=== PATIENT | female | born 1965 | race Caucasian/White ===

== ENCOUNTER 2024-04-09 16:42 | Outpatient (OUT) | payer OTHER, SELFPAY ==
[2024-04-09 17:11] LABS: Bilirubin Urine NEGATIVE (NEGATIVE); Blood Urine SMALL (NEGATIVE); Clarity Urine CLEAR (CLEAR); Color Urine YELLOW (YELLOW); Glucose Urine UA NEGATIVE (NEGATIVE); Ketones Urine NEGATIVE (NEGATIVE); Leukocyte Esterase Urine NEGATIVE (NEGATIVE); Nitrite Urine NEGATIVE (NEGATIVE); Protein Urine TRACE mg/dL (NEG/TRACE); Specific Gravity Urine >=1.030 (1.005-1.025); Urobilinogen Urine 0.2 EU/dL (0.2-1.0); pH Urine 5.5 (5.0-9.0)
== END 2024-04-09 16:43 | disposition home or self-care (01) ==
PROVIDERS: PCP Family Medicine; Visit Provider Family Medicine
DX: R30.0 Dysuria (principal)
CPT/HCPCS: 81003; 87086

== ENCOUNTER 2024-07-21 11:36 | Outpatient (OUT) | payer OTHER, SELFPAY ==
--- NOTE | 2024-07-21 11:39 | US_ITS ---
The [address] [address] Patient Name: SANKET MACDONALD MRN: [id number] date: 1965 Sex: F Assigned Patient Location: [place] Current Patient Location: Accession/Order Number: [id number] Exam Date: 07/21/2024 12:20 Report Date: 07/21/2024 14:24 At the request of: LUCINDA VELOZ Procedure: US renal BI EXAM: US renal BI HISTORY: Urinary Tract Infection Symptoms COMPARISON: None. TECHNIQUE: Real-time ultrasound imaging of the kidneys and bladder Findings: The right and left kidneys measure 10.1 and 9.0 cm. There is good corticomedullary differentiation. No renal stones or collecting system dilatation. No focal mass or perinephric fluid collection. The bladder is fluid-filled and unremarkable with a prevoid volume of 393 mL. The bilateral ureteral jets are identified. US/US renal BI IMPRESSION: 1. Unremarkable sonographic appearance of the kidneys and bladder. Electronically authenticated by: ALEA AYON Date: 07/21/2024 14:24
--- OUTSIDE RECORDS SUMMARY | 2024-07-21 11:56 | XMS_ITS | CCD ---
Author Organization [facility] Care Team Providers Care Freight Agent Name Role Phone Praneeth Soto Attending Provider Fermin Noriega Primary Care Provider PIEDAD BROWN Attending Unavailable PIEDAD BROWN Admitting Unavailable PIEDAD BROWN Consulting Unavailable PIEDAD BROWN Attending Unavailable PIEDAD BROWN Admitting Unavailable PIEDAD BROWN Consulting Unavailable MD Fermin Noriega Primary Care Provider MD Griselda Faye Attending Provider DO Praneeth Soto Referring Provider MD Pastor Allison Solano Attending Provider MD Fermin Noriega Primary Care Provider [phone] DO Praneeth Soto Attending Provider [phone] MD Griselda Faye Attending Provider DO Praneeth Soto Referring Provider [phone] FERMIN NORIEGA Primary Care Physician Unavail able MD Fermin Noriega Primary Care Provider [phone] MD Griselda Faye Attending Provider DO Praneeth Soto Referring Provider MD Fermin Noriega Primary Care Provider DO Praneeth Soto Attending Provider [facility], Outreach Attending Provider [phone] Fermin Noriega MD Primary Care Provider MD Griselda Faye Attending Provider [phone] DO Praneeth Soto Referring Provider Hemeyer, MD Edward J Primary Care Provider MD Griselda Faye Attending Provider DO Praneeth Soto Referring Provider ARETHA Long Attending Provider Fermin Noriega Primary Care Unavailable Praneeth Soto Admitting Unavailable Praneeth Soto Attending Unavailable Fermin Noriega Primary Care Unavailable Cara Long Admitting Unavailable Cara Long Attending Unavailable Griselda Faye Attending Unavailable Fermin Noriega Primary Care Unavailable Griselda Faye Admitting Unavailable Praneeth Soto Referring Unavailable Fermin Noriega Primary Care Unavailable Community, Outreach Admitting Unavailable Community, Outreach Attending Unavailable PRANEETH SOTO Attending Unavailable FERMIN NORIEGA Referring Unavailable FERMIN NORIEGA Attending Unavailable AYANNA ROSARIO Attending Unavailable FERMIN NORIEGA Attending Unavailable PRANEETH SOTO Attending Unavailable FERMIN NORIEGA Attending Unavailable KELIN VELOZ Admitting Unavailab KELIN Mccall Attending Unavailab FERMIN Farooq Admitting Unavailable FERMIN NORIEGA Attending Unavailable Alma Bennett Attending Unavailable Alma Bennett Admitting Unavailable FERMIN NORIEGA Referring Unavailable KELIN VELOZ Attending Unavailab bharati Unavailable Unavailable Unavailable Medications Current Medications Medication Drug Class(es) Dates Sig (Normalized) Sig (Original) [id number] 200 actuat albuterol 0.09 mg/actuat metered dose inhaler (2 sources) beta2-Adrenergic Agonist Start: 01-31-2024 take 1 puff(s) by inhalation four times daily Albuterol Sulfate Active 2 PUFF INHALATION Four times daily 8.5 January 31, 2024 12:00am ascorbic acid 60 mg / beta carotene 5000 unt / copper sulfate 40 mg / dl-alpha tocopheryl acetate 30 unt / sodium selenite 0.04 mg / zinc oxide 40 mg oral tablet (3 sources) Vitamin C Multiple Vitamin (Multivitamin Adult) tablet as directed Orally 0 Active azithromycin 250 mg oral tablet (2 sources) Macrolide Antimicrobial Start: 01-31-2024 take 2 tablets by mouth once daily, then take 1 tablet by mouth once daily Azithromycin (Zithromax Z-Bryan) 250 mg tablet Active 250 MG PO Daily 6 January 31, 2024 12:00am take 2 tabs today and 1 daily for the next 4 days benzonatate 200 mg oral capsule (2 sources) Non-narcotic Antitussive Start: 01-31-2024 Benzonatate Active 200 MG PO 2-3 TIMES PER DAY January 31, 2024 12:00am Bupropion (2 sources) Aminoketone Start: 10-24-2020 buPROPion Start Date: 10/24/20 Status: Ordered 24 HR calcium carbonate 1500 MG / cholecalciferol 500 UNT Extended Release Oral Tablet (5 sources) Vitamin D Start: 07-13-2024 take 2 tablets by mouth once daily in the morning calcium-vitamin D 600 mg-500 intl units oral tablet, extended release 2 tab(s), Oral, qAM, 80 tab(s), Refill(s) 0 Start Date: 07/13/24 Status: Ordered calcium carbonat e-vitamin D 600-200 MG-UNIT tablet 1 (one) time each day at the same time. 0 Active cephalexin 500 mg oral capsule (2 sources) Cephalosporin Antibacterial Start: 03-27-2024 take 500 mg by mouth every twelve hours Cephalexin Active 500 MG PO Q12H 20 March 27, 2024 12:00am Citalopram (2 sources) Serotonin Reuptake Inhibitor Start: 10-24-2020 citalopram Start Date: 10/24/20 Status: Ordered dextromethorphan hydrobromide 1.5 mg/ml / pyrilamine maleate 1.5 mg/ml oral solution (2 sources) Uncompetitive S-vbrzzs-B-aspartate Receptor Antagonist, Sigma-1 Agonist Start: 03-27-2024 take 1 mL by mouth every eight hours Pyrilamine-Dext romethorphan ([place] Dm) 7.5-7.5 mg/5 mL liquid Active 10 ML PO Every 8 hours 150 March 27, 2024 12:00am Dosoquin (2 sources) Start: 10-24-2020 Dosoquin Refill(s) 0 Start Date: 10/24/20 Status: Ordered DULoxetine 20 mg delayed release oral capsule (15 sources) Serotonin and Norepinephrine Reuptake Inhibitor Start: 07-13-2024 duloxetine 20 mg oral delayed release capsule 20 mg = 1 cap(s), Refills(s) 0 Start Date: 07/13/24 Status: Ordered Start: 05-23-2023 take 1 capsule by fl ut in the morning DULoxetine (Cymbalta) [address] capsule Take 20 mg by mouth in the morning. 0 05/23/2023 Active Start: 12-04-2020 take 30 mg by mouth once daily Duloxetine Active 30 MG PO Daily December 04, 2020 1:00am ibuprofen 800 mg oral tablet (9 sources) Nonsteroidal Anti-inflammatory Drug Start: 02-03-2021 take 800 mg by mouth three times daily Ibuprofen Active 800 MG PO Three times daily February 03, 2021 12:00am letrozole 2.5 mg oral tablet (20 sources) Aromatase Inhibitor Start: 07-13-2024 letrozole 2.5 mg Tab 2.5 mg = 1 tab(s), Refills(s) 0 Start Date: 07/13/24 Status: Ordered Start: 03-07-2021 End: 10-20-2023 take 2.5 mg by mouth once daily Letrozole Discontinued 2.5 MG PO Daily 90 90 August 12, 2022 3:27pm October 20, 2023 9:45am methylPREDNISolone 4 mg oral tablet (2 sources) Corticosteroid Start: 01-31-2024 take 1 tablet by mouth once Methylprednisolone (Medrol (Bryan)) 4 mg tablets,dose pack Active 0 PO per package directions January 31, 2024 12:00am PO PER PKG DIR for 6 days Probiotic Product (PROBIOTIC DAILY PO) (3 sources) take 1 capsule by mouth three times weekly Probiotic Product (PROBIOTIC DAILY PO) Take 1 capsule by mouth 3 (three) times a week. 0 Active Vitamin D3-Vitamin K2 (Dosoquin) 5,500-200 unit-mcg tablet (10 sources) Start: 12-04-2020 take 1 tablet by mouth once daily Vitamin D3-Vitamin K2 (Dosoquin) 5,500-200 unit-mcg tablet Active 1 TAB PO Daily December 04, 2020 5:30pm Start: 12-04-2020 End: 06-19-2023 take 1 tablet by mouth once daily Vitamin D3-Vitamin K2 (Dosoquin) 5,500-200 unit-mcg tablet Discontinued 1 TAB PO Daily December 04, 2020 12:00am June 19, 2023 1:49pm Start: 12-04-2020 End: 06-19-2023 take 1 tablet by mouth once daily Vitamin D3-Vitamin K2 (Dosoquin) 5,500-200 unit-mcg tablet Discontinued 1 TAB PO Daily December 04, 2020 1:00am June 19, 2023 2:49pm Start: 12-04-2020 take 1 tablet by evens th once daily Vitamin D3-Vitamin K2 (Dosoquin) 5,500-200 unit-mcg tablet Active 1 TAB PO Daily December 04, 2020 12:00am Start: 12-04-2020 take 1 tablet by evens th once daily Vitamin D3-Vitamin K2 (Dosoquin) 5,500-200 unit-mcg tablet Active 1 TAB PO Daily December 04, 2020 1:00am Completed/Discontinued Medications Medication Drug Class(es) Dates Sig (Normalized) Sig (Original) anastrozole 1 mg oral tablet (18 sources) Aromatase Inhibitor Start: 02-14-2021 End: 03-07-2021 take 1 mg by mouth once daily Anastrozole Discontinued 1 MG PO Daily February 14, 2021 9:11am March 07, 2021 10:29am traMADol hydrochloride 50 mg oral tablet (9 sources) Opioid Agonist Start: 12-07-2020 End: 10-25-2021 take 0.5-1 tablets by mouth every six hours as needed for pain Tramadol (Ultram) 50 mg tablet Discontinued 50 MG PO Q6H 45 7 December 07, 2020 1:00am October 25, 2021 3:37pm 1/2 - 1 tab po q 6 hours prn pain Problems Active Problems Problem Classification Problem Date Documented Da te Episodic/Chronic Anxiety disorders (5 sources) Mixed anxiety and depressive disorder; Translations: [Other specified anxiety disorders] Onset: 06-05-2023 06-05-2023 Chronic Cancer of breast (20 sources) Carcinoma of breast ; Translations: [Malignant neoplasm of unspecified site of right female breast] Onset: 06-05-2023 01-19-2021 Chronic Chronic obstructive pulmonary disease and bronchiectasis (2 sources) Bronchitis, not specified as acute or chronic; Translations: [Bronchitis, not specified as acute or chronic] 01-31-2024 Episodic Genitourinary symptoms and ill-defined conditions (3 sources) Mixed incontinence; Translations: [Incontinence] Onset: 07-13-2024 Chronic Genitourinary symptoms and ill-defined conditions (9 sources) History of hematuria; Translations: [Personal history of other diseases of urinary system] Onset: 03-27-2024 12-23-2023 Episodic Immunizations and screening for infectious disease (4 sources) Encounter for immunization; Translations: [ENCOUNTER FOR IMMUNIZATION] Onset: 06-12-2021 Episodic Mood disorders (3 sources) Recurrent major depression in partial remission; Translations: [Major depressive disorder, recurrent, in partial remission] Onset: 10-24-2015 06-05-2023 Chronic Other aftercare (9 sources) Drug therapy finding; Translations: [Encounter for therapeutic drug level monitoring] 02-14-2021 Episodic Other aftercare (10 sources) Encounter for therapeutic drug level monitoring; Translations: [Encounter for therapeutic drug monitoring] 04-25-2022 Episodic Other bone disease and musculoskeletal deformities (11 sources) Osteopenia; Translations: [Other specified disorders of bone density and structure, unspecified site] 02-14-2021 Episodic Other bone disease and musculoskeletal deformities (10 sources) Other specified disorders of bone density and structure, unspecified site; Translations: [Disorder of bone and cartilage, unspecified] 04-25-2022 Episodic Other diseases of veins and lymphatics (11 sources) Lymphedema; Translations: [Lymphedema, not elsewhere classified] 04-25-2022 Chronic Other diseases of veins and lymphatics (7 sources) Lymphedema, not elsewhere classified; Translations: [Other lymphedema] 04-25-2022 Chronic Other nutritional; endocrine; and metabolic disorders (5 sources) Morbid obesity; Translations: [Morbid (severe) obesity due to excess calories] Onset: 06-05-2023 06-05-2023 Chronic Other nutritional; endocrine; and metabolic disorders (2 sources) Body mass index 40+ - severely obese; Translations: [Body mass index (BMI) 50.0-59.9, adult] 12-23-2023 Chronic Other nutritional; endocrine; and metabolic disorders (3 sources) Obesity; Translations: [Obesity, unspecified] 01-09-2024 Chronic Other nutritional; endocrine; and metabolic disorders (3 sources) Obesity, unspecified; Translations: [Obesity, unspecified] 01-08-2024 Chronic Other screening for suspected conditions (not mental disorders or infectious disease) (16 sources) Patient encounter status; Translations: [Encounter for screening for osteoporosis] 01-19-2021 Episodic Other upper respiratory disease (1 source) Allergic rhinitis, unspecified; Translations: [Allergic rhinitis, cause unspecified] 03-27-2024 Chronic Sprains and strains (9 sources) Sprain of foot; Translations: [Unspecified sprain of right foot, initial encounter] 02-03-2021 Episodic Unclassified (1 source) Malignant neoplasm of unspecified site of right female breast; Translations: [Malignant neoplasm of unspecified site of right female breast] Onset: 01-08-2024 Unclassified (1 source) Malignant neoplasm of upper-outer quadrant of right female breast; Translations: [Malignant neoplasm of upper-outer quadrant of right female breast] Onset: 10-14-2023 Past or Other Problems Problem Classification Problem Date Documented Da te Episodic/Chronic Heart valve disorders (5 sources) Heart murmur; Translations: [Cardiac murmur, unspecified] Onset: 06-05-2023 06-05-2023 Episodic Residual codes; unclassified (1 source) Estrogen receptor positive status [ER+]; Translations: [Estrogen receptor positive status [ER+]] Onset: 10-14-2023 Episodic Results Test Name Value Interpretation Reference Range Facility Ambulatory Visit Summaryon 0 07-13-2024 Ambulatory Visit Summary Ambulatory Visit Summary KIMBERLEY MACDONALD :1965 Visit Date:07/13/2024 Ambulatory Visit Instructions Your Diagnosis UTI symptoms Tests Performed US Renal -- Results Pending -- Please visit your patient portal for your results or contact your primary care physician. Your Care Team Attending Physician - LUCINDA VLEOZ PA-C Primary Care Physician - FERMIN NORIEGA MD Referring Physician - FERMIN NORIEGA MD This Is Your Medications List calcium-vitamin D (calcium-vitamin D 600 mg-500 intl units oral tablet, extended release) duloxetine (duloxetine 20 mg oral delayed release capsule) letrozole (letrozole 2.5 mg Tab) Procedures Performed Colonoscopy (08/18/2017), Mastectomy, Ts - Tonsillectomy, Tubal ligation. Discharge Vitals Temperature (Temporal Artery) 37 ?C Heart Rate (Peripheral) 80 Respiratory Rate 16 Blood Pressure 134/86 Height 155 cm Height 61 in Weight 131.8 kg Weight 289.96 lb BMI 54.86 Medications What How Much When Instructions Unchanged calcium-vitamin D (calcium-vitamin D 600 mg-500 intl units oral tablet, extended release) 2 Tablets By Mouth Once a day (in the morning) Unchanged duloxetine (duloxetine 20 mg oral delayed release capsule) 1 Capsules Unchanged letrozole (letrozole 2.5 mg Tab) 1 Tablets Allergies No Known Allergies Problems Ongoing - Any problem that you are currently receiving treatment for. Carcinoma of breast Heart murmur Lymphedema Mixed anxiety and depressive disorder Osteopenia Patient Survey You may receive a survey via text or e-mail asking about your office visit. Please share your experience with us by completing your survey. We appreciate your feedback and thank you for choosing us for your care. Normal [facility] Urine Cultureon 03-27-2024 Bacteria identified Cx Nom (U) ORGANISM: Escherichia coli (O:ESCCOL) [place] Count >100,000 Aerobic EVANS Charge ([id number]) ---- SUSCEPTIBILITY --- ORGANISM: O:ESCCOL ANTIBIOTIC INTERPRETATION EVANS Amikacin S <16 Amoxacillin/K Clavulanate S <8 Ampicillin S <8 Ampicillin/Sulbactam S <4 Aztreonam S <4 Cefazolin S <2 Cefepime S <2 Ceftazidime S <1 Ceftazidime/Avibactam S <4 Ceftolozane/Tazobacta m S <2 Ceftriaxone S <1 Cefuroxime S <4 Ciprofloxacin R >2 Ertapenem S <0.5 Gentamicin S <2 Levofloxacin R >4 Meropenem S <1 Meropenem/Vaborbactam S <2 Nitrofurantoin S <32 Piperacillin/Tazobact am S <8 Tetracycline S <4 Tigecycline S <2 Tobramycin S <2 Trimethoprim/Sulfamet hoxazole S <0.5 S = SUSCEPTIBLE I = INTERMEDIATE R = RESISTANT BLANK = DATA NOT AVAILABLE, OR DRUG NOT ADVISABLE OR TESTED R* = RESISTANCE DUE TO EXTENDED SPECTRUM BETA-LACTAMASES ESBL = EXTENDED SPECTRUM BETA-LACTAMASE TFG = THYMIDINE-DEPENDENT STRAIN NISREEN = BETA-LACTAMASE POSITIVE IB = INDUCIBLE BETA-LACTAMASE. APPEARS IN PLACE OF 'S' WITH SPECIES KNOWN TO POSSESS INDUCIBLE BETA-LACTAMASES. POTENTIALLY THEY MAY BECOME RESISTANT TO ALL B-LACTAM DRUGS. PERFORMED BY: [facility] [address] [facility] [place] [id number] PATHOLOGIST RECOVERY COACH ELIZABETH ADHIKARI M.D. Normal [facility] Comment on above: Performed By: #### C UU #### [facility] [address] [id number] [facility] PAP [id number] 02-03-2024 Cytology report Cyto stain Doc (Cvx/Vag) Note Invalid Interpretation Code [facility] Comment on above: Result Comment: TEST S RESULT FLAG UNITS REF RANGE LAB Clinician Provided Cytology Information Source.............Cervix LMP / Prev Treat...None No. of containers..01 ThinPrep Vial DIAGNOSIS: 01 NEGATIVE FOR INTRAEPITHELIAL LESION OR MALIGNANCY. Specimen adequacy: 01 Satisfactory for evaluation. No endocervical component is identified. Performed by: Caitlin Vila, Doctor Of Radiology (ASCP) . 01 Note: Note 01 The Pap smear is a screening test designed to aid in the detection of premalignant and malignant conditions of the uterine cervix. It is not a diagnostic procedure and should not be used as the sole means of detecting cervical cancer. Both false-positive and false-negative reports do occur. Test Methodology: Note 01 The Axis Three(R) Sheet Metal Supervisor was unable to read this specimen. Therefore a manual review was performed. FLAG LEGEND: L-Low Normal,H-High Normal,LL-Alert Low,HH-Alert High <-Panic Low,>-Panic High,A-Abnormal,AA-Critical Abnormal Performed at: 01 WB [facility] [address] [facility] [place] [address] Renetta Rosario MD, Performed at: [facility] [address] [id number] MD Abraham Jackson Performed By: #### 3 [id number] #### [facility] [address] [id number] PAP [phone] 01-29-2024 Collection Technique BRUSH-SPATULA Normal [facility] Comment on above: Performed By: #### 3 [id number] #### [facility] [address] [place] [address] Gynecological Body Site CERVIX Normal [facility] Comment on above: Performed By: #### 3 [id number] #### [facility] [address] [place] [address] Previous Cytology Negative Normal [facility] Comment on above: Performed By: #### 3 [id number] #### [facility] [address] [place] [address] Previous Treatment NONE Normal [facility] Comment on above: Performed By: #### 3 [id number] #### [facility] [address] [id number] Physician Orderon 01-28-2024 Physician Order [id number] .00TIFF Normal [facility] Urinalysis macro (dipstick) panel (U)on 12-23-2023 Bilirubin, UA Negative Negative - 4(70) +++ mg/dL [facility] Blood, UA Negative Negative - 50 [place]/mcL [facility] Clarity, UA Clear [facility] Color, UA Light Yellow [facility] Glucose, UA Negative Negative - 2000(110) ++++ mg/dL [facility] Ketones, UA Negative Negative - 160(16) ++++ mg/dL [facility] Leukocytes, UA Negative Negative - 500+++ Delmi/mcL [facility] Nitrite, UA Negative Negative - Positive [facility] pH, UA 6.0 5 - 9 [facility] Protein, UA Negative Negative - 2000(20) ++++ mg/dL [facility] Spec Grav, UA 1.020 1 - 1.03 [facility] Urobilinogen, UA 0.2 0.2 - 12 mg/dL [facility] Urineon 11-30-2023 Bacteria identified Cx Nom (U) Microbiology PROCEDURE: Urine Culture [R1] SOURCE: U CleanCatch BODY SITE: COLLECTED DATE/TIME: 11/27/2023 12:00 EST RECEIVED DATE/TIME: 11/28/2023 19:24 EST START DATE/TIME: 11/28/2023 19:24 EST FREE TEXT SOURCE: LEANN CHAMBERS, FERMIN NORIEGA MD, FERMIN Gil FINAL REPORTS Final Report [] Verified Date/Time: 11/30/2023 07:19 EST 2,000 cfu/ml Mixed skin contaminants Performing Locations R1: This test was performed at: [facility], [address] [place] [address], [facility]- , , [facility] Comment on above: Performed By: #### 2 [id number] #### [facility] [address] [place] [address] Physician Orderon 11-28-2023 Physician Order [id number] .00TIFF [facility] Physician Order [id number] .00TIFF [facility] Alanine aminotransferase [En zymatic activity/volume] in Serum or PlasmaOrdered By: [facility]ITY on 10-18-2023 ALT [Catalytic activity/Vol] 14 U/L 7-[address] [facility] Albumin [Mass/volume] in Ser um or Plasma by Bromocresol green (BCG) dye binding methoOrdered By: [facility] on 10-18-2023 Albumin BCG dye [Mass/Vol] 4.1 g/dL 3.5-5.[address] [facility] Alkaline phosphatase [Enzyma tic activity/volume] in Serum or PlasmaOrdered By: [facility] on 10-18-2023 ALP [Catalytic activity/Vol] 96 U/L 34-[address] [facility] Aspartate aminotransferase [ Enzymatic activity/volume] in Serum or PlasmaOrdered By: [facility] on 10-18-2023 AST [Catalytic activity/Vol] 11 U/L 13-[address] [facility] Bilirubin.total [Mass/volume ] in Serum or PlasmaOrdered By: [facility] on 10-18-2023 Bilirubin [Mass/Vol] 0.6 mg/dL 0.3-1.0 [facility] CBC Without Differentialon 1 12-19-2022 Erythrocyte distribution width (RBC) [Ratio] 15.9 % High 11.9-15.3 [facility] Comment on above: Performed By: #### O UTREACH LIPID, OUTREACH GLYCO, CBCNOOUTREACH, OUTREACH TSH, OUTREACH VITD, OUTREACH CMP #### [facility] [address] Hematocrit (Bld) [Volume fraction] 37.4 % Normal 34.0-46.4 [facility] Comment on above: Performed By: #### O UTREACH LIPID, OUTREACH GLYCO, CBCNOOUTREACH, OUTREACH TSH, OUTREACH VITD, OUTREACH CMP #### [facility] [address] Hemoglobin (Bld) [Mass/Vol] 12.5 g/dL Normal 11.8-15.4 [facility] Comment on above: Performed By: #### O UTREACH LIPID, OUTREACH GLYCO, CBCNOOUTREACH, OUTREACH TSH, OUTREACH VITD, OUTREACH CMP #### [facility] [address] [id number] [place] MCH (RBC) [Entitic mass] 27.1 pg Normal 24.7-34.3 [facility] Comment on above: Performed By: #### O UTREACH LIPID, OUTREACH GLYCO, CBCNOOUTREACH, OUTREACH TSH, OUTREACH VITD, OUTREACH CMP #### [address] MCV (RBC) [Entitic vol] 81.2 fL Normal 80-100 [facility] Comment on above: Performed By: #### O UTREACH LIPID, OUTREACH GLYCO, CBCNOOUTREACH, OUTREACH TSH, OUTREACH VITD, OUTREACH CMP #### [address] Mean Corpuscular HGB Conc 33.4 g/dL Normal 32.0-35.0 [facility] Comment on above: Performed By: #### O UTREACH LIPID, OUTREACH GLYCO, CBCNOOUTREACH, OUTREACH TSH, OUTREACH VITD, OUTREACH CMP #### [address] Platelet mean volume (Bld) [Entitic vol] 8.7 fL Normal 6.3-10.7 [facility] Comment on above: Result Comment: PERF ORMED BY: [place] [address] PATHOLOGIST RECOVERY COACH ELIZABETH ADHIKARI M.D. Performed By: #### O UTREACH LIPID, OUTREACH GLYCO, CBCNOOUTREACH, OUTREACH TSH, OUTREACH VITD, OUTREACH CMP #### [place] [address] [place] Platelets (Bld) [#/Vol] 306 10*3/uL Normal 150-450 [facility] Comment on above: Performed By: #### O UTREACH LIPID, OUTREACH GLYCO, CBCNOOUTREACH, OUTREACH TSH, OUTREACH VITD, OUTREACH CMP #### [place] [address] [place] RBC (Bld) [#/Vol] 4.60 10*6/uL Normal 3.60-5.00 [facility] Comment on above: Performed By: #### O UTREACH LIPID, OUTREACH GLYCO, CBCNOOUTREACH, OUTREACH TSH, OUTREACH VITD, OUTREACH CMP #### [place] [address] [place] WBC (Bld) [#/Vol] 8.5 10*3/uL Normal 3.8-11.6 [facility] Comment on above: Performed By: #### O UTREACH LIPID, OUTREACH GLYCO, CBCNOOUTREACH, OUTREACH TSH, OUTREACH VITD, OUTREACH CMP #### [facility] [address] [place] [address] CMP Outreachon 10-18-2023 Albumin [Mass/Vol] 4.1 g/dL Normal 3.5-5.7 [facility] Comment on above: Performed By: #### O UTREACH LIPID, OUTREACH GLYCO, CBCNOOUTREACH, OUTREACH TSH, OUTREACH VITD, OUTREACH CMP #### [facility] [address] [place] [address] ALP [Catalytic activity/Vol] 96 U/L Normal 34-104 [facility] Comment on above: Performed By: #### O UTREACH LIPID, OUTREACH GLYCO, CBCNOOUTREACH, OUTREACH TSH, OUTREACH VITD, OUTREACH CMP #### [address] ALT [Catalytic activity/Vol] 14 U/L Normal 7-52 [facility] Comment on above: Performed By: #### O UTREACH LIPID, OUTREACH GLYCO, CBCNOOUTREACH, OUTREACH TSH, OUTREACH VITD, OUTREACH CMP #### [address] Anion gap [Moles/Vol] 10.9 mmol/L Normal 6.0-15.0 [facility] Comment on above: Performed By: #### O UTREACH LIPID, OUTREACH GLYCO, CBCNOOUTREACH, OUTREACH TSH, OUTREACH VITD, OUTREACH CMP #### [facility] [address] [place] [address] AST [Catalytic activity/Vol] 11 U/L Low 13-39 [facility] Comment on above: Performed By: #### O UTREACH LIPID, OUTREACH GLYCO, CBCNOOUTREACH, OUTREACH TSH, OUTREACH VITD, OUTREACH CMP #### [facility] [address] [place] [address] Bilirubin [Mass/Vol] 0.6 mg/dL Normal 0.3-1.0 [facility] Comment on above: Performed By: #### O UTREACH LIPID, OUTREACH GLYCO, CBCNOOUTREACH, OUTREACH TSH, OUTREACH VITD, OUTREACH CMP #### [facility] [address] [place] [address] [place] Calcium [Mass/Vol] 9.9 mg/dL Normal 8.6-10.3 [facility] Comment on above: Performed By: #### O UTREACH LIPID, OUTREACH GLYCO, CBCNOOUTREACH, OUTREACH TSH, OUTREACH VITD, OUTREACH CMP #### [facility] [address] [place] [address] [place] Chloride [Moles/Vol] 104 mmol/L Normal 98-107 [facility] Comment on above: Performed By: #### O UTREACH LIPID, OUTREACH GLYCO, CBCNOOUTREACH, OUTREACH TSH, OUTREACH VITD, OUTREACH CMP #### [place] [address] [place] CO2 [Moles/Vol] 30.7 mmol/L Normal 21.0-31.0 [facility] Comment on above: Performed By: #### O UTREACH LIPID, OUTREACH GLYCO, CBCNOOUTREACH, OUTREACH TSH, OUTREACH VITD, OUTREACH CMP #### [facility] [address] [place] [address] [place] Creatinine [Mass/Vol] 1.27 mg/dL High 0.60-1.20 [facility] Comment on above: Performed By: #### O UTREACH LIPID, OUTREACH GLYCO, CBCNOOUTREACH, OUTREACH TSH, OUTREACH VITD, OUTREACH CMP #### [place] [address] [place] GFR/1.73 sq M.predicted MDRD (S/P/Bld) [Vol rate/Area] 49.019 mL/min/{1.73_m2} Normal [facility] Comment on above: Performed By: #### O UTREACH LIPID, OUTREACH GLYCO, CBCNOOUTREACH, OUTREACH TSH, OUTREACH VITD, OUTREACH CMP #### [facility] [address] [place] [address] [place] Glucose [Mass/Vol] 101 mg/dL High 70-100 [facility] Comment on above: Result Comment: [facility] Glucose Reference Range is dependent on time and content of last meal. Glucose of more than 200 mg/dL in a nonstressed, ambulatory subject supports the diagnosis of Diabetes Mellitus. ADA recommended reference range Performed By: #### O UTREACH LIPID, OUTREACH GLYCO, CBCNOOUTREACH, OUTREACH TSH, OUTREACH VITD, OUTREACH CMP #### [facility] [address] [place] [address] [place] Potassium [Moles/Vol] 4.6 mmol/L Normal 3.5-5.1 [facility] Comment on above: Performed By: #### O UTREACH LIPID, OUTREACH GLYCO, CBCNOOUTREACH, OUTREACH TSH, OUTREACH VITD, OUTREACH CMP #### [facility] [address] [place] [address] Protein [Mass/Vol] 7.2 g/dL Normal 6.4-8.9 [facility] Comment on above: Performed By: #### O UTREACH LIPID, OUTREACH GLYCO, CBCNOOUTREACH, OUTREACH TSH, OUTREACH VITD, OUTREACH CMP #### [facility] [address] [place] [id number] [place] Sodium [Moles/Vol] 141 mmol/L Normal 136-145 [facility] Comment on above: Performed By: #### O UTREACH LIPID, OUTREACH GLYCO, CBCNOOUTREACH, OUTREACH TSH, OUTREACH VITD, OUTREACH CMP #### [facility] [address] [place], [place] [id number] [place] Urea nitrogen [Mass/Vol] 23 mg/dL Normal 7-25 [facility] Comment on above: Performed By: #### O UTREACH LIPID, OUTREACH GLYCO, CBCNOOUTREACH, OUTREACH TSH, OUTREACH VITD, OUTREACH CMP #### [facility] [address] [place] [id number] [place] Calcium [Mass/volume] in Ser um or PlasmaOrdered By: OUTREACH COMMUNITY on 10-18-2023 Calcium [Mass/Vol] 9.9 mg/dL 8.6-10.3 [facility] Carbon dioxide, total [Moles /volume] in Serum or PlasmaOrdered By: OUTREACH COMMUNITY on 10-18-2023 CO2 [Moles/Vol] 30.7 mmol/L 21.0-31.0 [facility] Chloride [Moles/volume] in S margaret or PlasmaOrdered By: OUTREACH COMMUNITY on 10-18-2023 Chloride [Moles/Vol] 104 mmol/L 98-107 [facility] Cholesterol [Mass/volume] in Serum or PlasmaOrdered By: OUTREACH COMMUNITY on 10-18-2023 Cholesterol [Mass/Vol] 153 mg/dL 140-200 [facility] Comment on above: Chol less than 200 m g/dl low riskChol 201-239 mg/dl borderline riskChol 240 mg/dl and greater high risk Cholesterol in LDL Calc [Mas s/Vol]Ordered By: OUTREACH COMMUNITY on 10-18-2023 Cholesterol in LDL [Mass/Vol] 80 mg/dL 0-[address] [facility] Comment on above: LDL ATP III CLASSIFI CATIONLDL less than 100 mg/dL OptimalLDL 100-129 mg/dL Near or above optimalLDL 130-159 mg/dL Borderline highLDL 160-189 mg/dL HighLDL greater than 189 mg/dL Very high Cholesterol in VLDL Calc [Ma ss/Vol]Ordered By: OUTREACH [facility] on 10-18-2023 Cholesterol in VLDL [Mass/Vol] 22 mg/dL [facility] Creatinine [Mass/volume] in Serum or PlasmaOrdered By: OUTREACH [facility] on 10-18-2023 Creatinine [Mass/Vol] 1.27 mg/dL 0.60-1.20 [facility] Erythrocyte distribution wid th Auto (RBC) [Ratio]Ordered By: OUTREACH COMMUNITY on 10-18-2023 Erythrocyte distribution width (RBC) [Ratio] 15.9 % 11.9-15.[address] [facility] Glucose [Mass/volume] in Ser um or PlasmaOrdered By: OUTREACH [facility] on 10-18-2023 Glucose [Mass/Vol] 101 mg/dL 70-100 [facility] Comment on above: ADA recommended refe rence rangeRandom Glucose Reference Range is dependent on time and content of last meal. Glucose of more than 200 mg/dL in a nonstressed, ambulatory subject supports the diagnosis of Diabetes Mellitus. Glucose mean value [Mass/vol ume] in Blood Estimated from glycated hemoglobinOrdered By: OUTREACH COMMUNITY on 10-18-2023 Average glucose Estimated from glycated hemoglobin (Bld) [Mass/Vol] 117 mg/dL [facility] Hematocrit Auto (Bld) [Volum e fraction]Ordered By: [facility] on 10-18-2023 Hematocrit (Bld) [Volume fraction] 37.4 % 34.0-46.[address] [facility] Hemoglobin [Mass/volume] in BloodOrdered By: [facility] on 10-18-2023 Hemoglobin (Bld) [Mass/Vol] 12.5 g/dL 11.8-15.[address] [facility] Laboratory - Hematology and Cell countsOrdered By: [facility] on 10-18-2023 HbA1c (Bld) [Mass fraction] 5.7 % 4.3-5.[address] [facility] Comment on above: Increased risk for d iabetes: 5.7 - 6.4diabetes: >6.4glycemic control for adults with diabetes: <7.0 Leukocytes [#/volume] correc [place] for nucleated erythrocytes in Blood by Automated counOrdered By: [facility] on 10-18-2023 WBC corrected for nucl RBC Auto (Bld) [#/Vol] 8.5 10*3/uL 3.8-11.[address] [facility] Lipid Profile [facility] Cholesterol [Mass/Vol] 153 mg/dL Normal 140-200 [facility] Comment on above: Result Comment: Chol less than 200 mg/dl low risk Chol 201-239 mg/dl borderline risk Chol 240 mg/dl and greater high risk Performed By: #### O UTREACH LIPID, OUTREACH GLYCO, CBCNOOUTREACH, OUTREACH TSH, OUTREACH VITD, OUTREACH CMP #### [facility] [address] Cholesterol in HDL [Mass/Vol] 51 mg/dL Normal 23-92 [facility] Comment on above: Result Comment: HDL CHOL ATP-III CLASSIFICATION Cardiovascular Risk HDL > or equal to 60 mg/dL LOW HDL < 40 mg/dL HIGH Performed By: #### O UTREACH LIPID, OUTREACH GLYCO, CBCNOOUTREACH, OUTREACH TSH, OUTREACH VITD, OUTREACH CMP #### [facility] [address] Cholesterol.total/Mana sterol in HDL [Mass ratio] 3.0 {ratio} Normal <5.0 [facility] Comment on above: Performed By: #### O UTREACH LIPID, OUTREACH GLYCO, CBCNOOUTREACH, OUTREACH TSH, OUTREACH VITD, OUTREACH CMP #### [facility] [address] LDL Cholesterol,Calculated 80 mg/dL Normal 0-100 [facility] Comment on above: Result Comment: LDL ATP III CLASSIFICATION LDL less than 100 mg/dL Optimal LDL 100-129 mg/dL Near or above optimal LDL 130-159 mg/dL Borderline high LDL 160-189 mg/dL High LDL greater than 189 mg/dL Very high Performed By: #### O UTREACH LIPID, OUTREACH GLYCO, CBCNOOUTREACH, OUTREACH TSH, OUTREACH VITD, OUTREACH CMP #### [facility] [address] [place] [id number] [facility] Triglyceride w/Reflex 110 mg/dL Normal 0-149 [facility] Comment on above: Result Comment: TRIG ATP III CLASSIFICATION TRIG less than 150 mg/dL Normal TRIG 150-199 mg/dL Borderline high TRIG 200-500 mg/dL High TRIG greater than 500 mg/dL Very high Standard traceable to the Center for Disease Conrtrol and Prevention (CDC) test method. Performed By: #### O UTREACH LIPID, OUTREACH GLYCO, CBCNOOUTREACH, OUTREACH TSH, OUTREACH VITD, OUTREACH CMP #### [address] VLDL CHOLESTEROL 22 mg/dL Normal [facility] Comment on above: Performed By: #### O UTREACH LIPID, OUTREACH GLYCO, CBCNOOUTREACH, OUTREACH TSH, OUTREACH VITD, OUTREACH CMP #### [address] MCH Auto (RBC) [Entitic mass ]Ordered By: OUTREACH COMMUNITY on 10-18-2023 MCH (RBC) [Entitic mass] 27.1 pg 24.7-34.[address] [facility] MCHC Auto (RBC) [Mass/Vol]Or dered By: OUTREACH COMMUNITY on 10-18-2023 MCHC (RBC) [Mass/Vol] 33.4 g/dL 32.0-35.0 [facility] MCV Auto (RBC) [Entitic vol] Ordered By: OUTREACH COMMUNITY on 10-18-2023 MCV (RBC) [Entitic vol] 81.2 fL 80-100 [facility] No Panel InformationOrdered By: OUTREACH COMMUNITY on 10-18-2023 Estimated GFR (CKD-EPI) 49.019 mL/Min [facility] Creatinine Clearance (Chem N/A [facility] Outreach Glycoon 10-18-2023 Glucose [Mass/Vol] 117 mg/dL Normal [facility] Comment on above: Result Comment: PERF ORMED BY: [facility] [address] [place] [address] PATHOLOGIST RECOVERY COACH ELIZABETH ADHIKARI M.D. Performed By: #### O UTREACH LIPID, OUTREACH GLYCO, CBCNOOUTREACH, OUTREACH TSH, OUTREACH VITD, OUTREACH CMP #### [facility] [address] [place] [id number] [facility] HbA1c (Bld) [Mass fraction] 5.7 % High 4.3-5.6 [facility] Comment on above: Result Comment: Incr eased risk for diabetes: 5.7 - 6.4 diabetes: >6.4 glycemic control for adults with diabetes: <7.0 Performed By: #### O UTREACH LIPID, OUTREACH GLYCO, CBCNOOUTREACH, OUTREACH TSH, OUTREACH VITD, OUTREACH CMP #### [facility] [address] [place] [id number] [facility] Outreach VitD 25on 3 Outreach VitD 25 32.6 ng/mL Normal 30-100 [facility] Comment on above: Result Comment: CARLITOS MIN D STATUS 25(OH)VITAMIN D RANGE (ng/mL) Deficient <20 Insufficient 20 to <30 Sufficient 30 to 100 Reference: Martina MF,Landy NC, Karen WASHINGTON, et al. Evaluation,treatment, and prevention of vitamin D deficiency; an Endocrine Society clinical practice guideline. JCEM. 2010; 96(7):1911-30. PERFORMED BY: [facility] [address] [place] [address] PATHOLOGIST RECOVERY COACH ELIZABETH ADHIKARI M.D. Performed By: #### [facility]IP[facility], OUTREACH GLYCO, CBCNOOUTREACH, OUTREACH TSH, OUTREACH VITD, OUTREACH CMP #### [facility] [address] Platelet mean volume Auto (B ld) [Entitic vol]Ordered By: OUTREACH [facility] on 10-18-2023 Platelet mean volume (Bld) [Entitic vol] 8.7 fL 6.3-10.[address] [facility] Platelets Auto (Bld) [#/Vol] Ordered By: OUTREACH [facility] on 10-18-2023 Platelets (Bld) [#/Vol] 306 10*3/uL 150-[address] [facility] Potassium [Moles/volume] in Serum or PlasmaOrdered By: OUTREACH [facility] on 10-18-2023 Potassium [Moles/Vol] 4.6 mmol/L 3.5-5.1 [facility] Protein [Mass/volume] in Ser um or PlasmaOrdered By: OUTREACH [facility] on 10-18-2023 Protein [Mass/Vol] 7.2 g/dL 6.4-8.9 [facility] RBC Auto (Bld) [#/Vol]Ordere d By: OUTREACH [facility] on 10-18-2023 RBC (Bld) [#/Vol] 4.60 10*6/uL 3.60-5.00 [facility] Serum or plasma anion gap de terminationOrdered By: OUTREACH [facility] on 10-18-2023 Anion gap [Moles/Vol] 10.9 mmol/L 6.0-15.0 [facility] Serum or plasma high density lipoprotein (HDL) cholesterol measurementOrdered By: OUTREACH [facility] on 10-18-2023 Cholesterol in HDL [Mass/Vol] 51 mg/dL 23-[address] [facility] Comment on above: HDL CHOL ATP-III CLA SSIFICATION Cardiovascular RiskHDL > or equal to 60 mg/dL LOWHDL < 40 mg/dL HIGH Serum or plasma total choles terol/high density lipoprotein (HDL) cholesterol mass ratOrdered By: OUTREACH [facility] on 10-18-2023 Cholesterol.total/Mana sterol in HDL [Mass ratio] 3.0 {ratio} <5.[address] [facility] Sodium [Moles/volume] in Ser um or PlasmaOrdered By: OUTREACH COMMUNITY on 10-18-2023 Sodium [Moles/Vol] 141 mmol/L 136-145 [facility] Thyroid Stimulating Hormoneo n 10-18-2023 TSH Qn 2.49 m[IU]/L Normal 0.45-5.33 [facility] Comment on above: Performed By: #### O UTREA LIPID, OUTREACH GLYCO, CBCNOOUTREACH, OUTREACH TSH, OUTREACH VITD, OUTREACH CMP #### [facility] [address] Thyrotropin [Units/volume] i n Serum or PlasmaOrdered By: OUTREACH COMMUNITY on 10-18-2023 TSH Qn 2.49 m[IU]/L 0.45-5.[address] [facility] Triglyceride [Mass/volume] i n Serum or PlasmaOrdered By: OUTREACH COMMUNITY on 10-18-2023 Triglyceride [Mass/Vol] 110 mg/dL 0-149 [facility] Comment on above: TRIG ATP III CLASSIF ICATIONTRIG less than 150 mg/dL NormalTRIG 150-199 mg/dL Borderline highTRIG 200-500 mg/dL High TRIG greater than 500 mg/dL Very highStandard traceable to the Center for Disease Conrtrol and Prevention (CDC) test method. Urea nitrogen [Mass/volume] in Serum or PlasmaOrdered By: OUTREACH COMMUNITY on 10-18-2023 Urea nitrogen [Mass/Vol] 23 mg/dL 7-[address] [facility] Vitamin D+Metabolites [Mass/ volume] in Serum or PlasmaOrdered By: OUTREACH COMMUNITY on 10-18-2023 Vitamin D+Metabolites [Mass/Vol] 32.6 ng/mL 30-[address] [facility] Comment on above: VITAMIN D STATUS 25( [place])VITAMIN D RANGE (ng/mL) Deficient <20 Insufficient 20 to <30Sufficient 30 to 100Reference: Martina JASSO,Landy DALE, Karen WASHINTGON, et al. Evaluation,treatment, and prevention of vitamin D deficiency; an Endocrine Society clinical practice guideline. JCEM. 2010; 96(7):1911-30. MM screening mammo LT w/CADo n 10-14-2023 MM screening mammo LT w/CAD [facility] [place] [address] [place] [address] Mammography Report Signed Patient: Kimberley Macdonald MR#: [id number] 0 : 1965 Acct:[id number] Age/Sex: 58 / F ADM Date: 10/14/23 Loc: [place] Room: Type: [facility] Attending Dr: Praneeth Soto DO Copies to: MD rPaneeth Camejo DO Ordering Provider: Praneeth Soto DO Date of Service: 10/14/23 MM/MM screening mammo LT w/CAD: 6 month follow up CLINICAL DATA: Screening for malignancy. Prior right mastectomy for carcinoma. LEFT SCREENING MAMMOGRAMS - FULL FIELD DIGITAL WITH TOMOSYNTHESIS AND CAD Tomosynthesis craniocaudal and mediolateral oblique views of the left breast were obtained using low-dose digital technique. Comparison is made to prior studies from September 30, 2020 through October 11, 2022. This examination was reviewed with the aid of CAD. The breast parenchyma has been largely replaced by fat. There are no developing masses, typically malignant calcifications or architectural distortion. There has been no significant interval change. MM/MM screening mammo LT w/CAD IMPRESSION: NO MAMMOGRAPHIC EVIDENCE OF MALIGNANCY. ROUTINE FOLLOW-UP IS RECOMMENDED IN ONE YEAR. RESULT CODE: 1 Negative DENSITY CODE: 1 (<25% glandular) FOLLOW UP: 1YR The false-negative rate of mammography is approximately 10-percent. Management of a palpable abnormality must be based on clinical grounds. Patient was entered into a reminder system with a target due date for the next mammogram. Impression dictated by: Yasmin Carrasco M.D.10/14/2023 1:21 PM Dictation Location: [facility] Transcribed By: [facility] 10/14/23 1321 Dictated By: Yasmin Carrasco MD 10/14/23 1317 Signed By: 10/14/23 1321 Normal [facility] Q - TERRANCE SCREEN IFA W/RFL TIT ER IFAon 01-21-2022 TERRANCE SCREEN, IFA Negative Normal NEGATIVE [facility] Chief Estimator Comment on above: Order Comment: [facility] Testing performed at: [facility], [employer] [address] , [address] [place] [address], [id number], Industrial Economics Teacher: Davon Campuzano MD [facility] Collection Date/Time: [facility] Results Received Date/Time: [facility] Reported Date/Time: Result Comment: TERRANCE IFA is a first line screen for detecting the presence of up to approximately 150 autoantibodies in various autoimmune diseases. A negative TERRANCE IFA result suggests an TERRANCE-associated autoimmune disease is not present at this time, but is not definitive. If there is high clinical suspicion for Sjogren's syndrome, testing for anti-SS-A/Ro antibody should be considered. Anti-Keely-1 antibody should be considered for clinically suspected inflammatory myopathies. AC-0: Negative International Consensus on TERRANCE Patterns (https://doi.org/10.1515/bcvm-7562-1878) For additional information, please refer to http://education.[employer]/faq/OYE993 (This link is being provided for informational/ educational purposes only.) Performed By: #### 2 49X, 265 #### [facility] [address] [place] [address] Q - ANTI-STREPTOLYSIN Oon ANTI-STREPTOLYSIN O <50 Normal <200 [facility] Specialist Comment on above: Order Comment: [facility] Testing performed at: Q, [employer] [facility], [address] [facility], [address] [place] [address], [place], [address], Industrial Economics Teacher: Davon Campuzano MD [facility] Collection Date/Time: [facility] Results Received Date/Time: [facility] Reported Date/Time: Performed By: #### 2 49X, 265 #### [facility] [address] [place] [address] RBC Sedimentation Rateon ESR (Bld) [Velocity] 32.00 mm/h High 0.00-30.00 [facility] Comment on above: Performed By: #### E SR #### [facility] [address] [place], [place] [id number] COVID-19 Positive/Negativeon 12-04-2020 COVID-19 Positive/Negative Negative Negative [facility] Comment on above: Testing for SARS-CoV -2 by RT-PCRThis test was developed and its performance characteristics determined by [employer] ([employer]) and validated at the [facility]. This test has not been FDA cleared or approved. This test has been authorized by FDA under an Emergency Use Authorization (EUA). This test has been validated in accordance with the FDA's Guidance Document (Policy for Diagnostics Testing in Laboratories Certified to Perform High Complexity Testing under CLIA prior to Emergency Use Authorization for Coronavirus Disease-2019 during the Public Health Emergency) issued on February 17, 2020. This test is only authorized for the duration of time the declaration that circumstances exist justifying the authorization of the emergency use of in vitro diagnostic tests for detection of SARS-CoV-2 virus and/or diagnosis of COVID-19 infection under section 564(b)(1) of the Act, 21 U.S.C. 360bbb-3(b)(1), unless the authorization is terminated or revoked sooner. Otheron 12-04-2020 Coronavirus 2019 PCR Interp N/A [facility] Vital Signs Date Time Vital Sign Value Performing Clinician Colin more 07-13-2024 13:56-0400 Blood Pressure Location LUCINDASADIE VELOZ [facility] 07-13-2024 13:56-0400 Body temperature 98.6 [degF] LUCINDA VELOZ [facility] 07-13-2024 13:56-0400 Diastolic blood pressure 86 mm[Hg] LUCINDASADIE VELOZ [facility] 07-13-2024 13:56-0400 Heart rate 80 /min LUCINDASADIE VELOZ [facility] 07-13-2024 13:56-0400 Respiratory rate 16 /min LUCINDA ROSELIA [facility] 07-13-2024 13:56-0400 Systolic blood pressure 134 mm[Hg] LUCINDA VELOZ [facility] 03-27-2024 12:22-0400 Body height 154.94 cm MD Fermin Noriega Work Phone: [facility] 03-27-2024 12:22-0400 Body mass index (BMI) [Ratio] 55.3 kg/m2 MD Fermin Noriega Work Phone: [facility] 03-27-2024 12:22-0400 Body temperature 97.9 [degF] MD Fermin Noriega Work Phone: [facility] 03-27-2024 12:22-0400 Body weight 132.95 kg MD Fermin Noriega Work Phone: [facility] 03-27-2024 12:22-0400 Diastolic blood pressure 90 mm[Hg] MD Fermin Noriega Work Phone: [facility] 03-27-2024 12:22-0400 Heart rate 87 /min MD Fermin Noriega Work Phone: [facility] 03-27-2024 12:22-0400 Respiratory rate 18 /min MD Fermin Noriega Work Phone: [facility] 03-27-2024 12:22-0400 SaO2% (BldA) [Mass fraction] 98 % MD Fermin Noriega Work Phone: [facility] 03-27-2024 12:22-0400 Systolic blood pressure 140 mm[Hg] MD Fermin Noriega Work Phone: [facility] 01-31-2024 14:11-0400 Body height 154.94 cm MD Fermin Noriega Work Phone: [facility] 01-31-2024 14:11-0400 Body mass index (BMI) [Ratio] 54.4 kg/m2 MD Fermin Noriega Work Phone: [facility] 01-31-2024 14:11-0400 Body temperature 97.8 [degF] MD Fermin Noriega Work Phone: [facility] 01-31-2024 14:11-0400 Body weight 130.8 kg MD Fermin Noriega Work Phone: [facility] 01-31-2024 14:11-0400 Diastolic blood pressure 104 mm[Hg] MD Fermin Noriega Work Phone: [facility] 01-31-2024 14:11-0400 Heart rate 78 /min MD Fermin Noriega Work Phone: [facility] 01-31-2024 14:11-0400 Respiratory rate 18 /min MD Fermin Noriega Work Phone: [facility] 01-31-2024 14:11-0400 SaO2% (BldA) [Mass fraction] 97 % MD Fermin Noriega Work Phone: [facility] 01-31-2024 14:11-0400 Systolic blood pressure 180 mm[Hg] MD Fermin Noriega Work Phone: [facility] 01-08-2024 15:07-0500 Body height 154.94 cm MD Fermin Noriega Work Phone: [facility] 01-08-2024 15:07-0500 Body mass index (BMI) [Ratio] 56.7 kg/m2 MD Fermin Noriega Work Phone: [facility] 01-08-2024 15:07-0500 Body temperature 97.9 [degF] MD Fermin Noriega Work Phone: [facility] 01-08-2024 15:07-0500 Body weight 136.07 kg MD Fermin Noriega Work Phone: [facility] 01-08-2024 15:07-0500 Diastolic blood pressure 85 mm[Hg] MD Fermin Noriega Work Phone: [facility] 01-08-2024 15:07-0500 Heart rate 79 /min MD Fermin Noriega Work Phone: [facility] 01-08-2024 15:07-0500 Respiratory rate 16 /min MD Fermin Noriega Work Phone: [facility] 01-08-2024 15:07-0500 SaO2% (BldA) [Mass fraction] 97 % MD Fermin Noriega Work Phone: [facility] 01-08-2024 15:07-0500 Systolic blood pressure 202 mm[Hg] MD Fermin Noriega Work Phone: [facility] 06-19-2023 14:51-0400 Body temperature 98.2 [degF] MD Fermin Noriega Work Phone: [facility] 06-19-2023 14:51-0400 Body weight 130.3 kg MD Fermin Noriega Work Phone: [facility] 06-19-2023 14:51-0400 Diastolic blood pressure 96 mm[Hg] MD Fermin Noriega Work Phone: [facility] 06-19-2023 14:51-0400 Heart rate 72 /min MD Fermin Noriega Work Phone: [facility] 06-19-2023 14:51-0400 Respiratory rate 16 /min MD Fermin Noriega Work Phone: [facility] 06-19-2023 14:51-0400 SaO2% (BldA) [Mass fraction] 98 % MD Fermin Noriega Work Phone: [facility] 06-19-2023 14:51-0400 Systolic blood pressure 170 mm[Hg] MD Fermin Noriega Work Phone: [facility] 10-23-2022 15:38-0500 Body height 154.94 cm MD Fermin Noriega Work Phone: [facility] 10-23-2022 15:38-0500 Body temperature 98.3 [degF] MD Fermin Noriega Work Phone: [facility] 10-23-2022 15:38-0500 Body weight 130.5 kg MD Fermin Noriega Work Phone: [facility] 10-23-2022 15:38-0500 Diastolic blood pressure 83 mm[Hg] MD Fermin Noriega Work Phone: [facility] 10-23-2022 15:38-0500 Heart rate 78 /min MD Fermin Noriega Work Phone: [facility] 10-23-2022 15:38-0500 Respiratory rate 20 /min MD Fermin Noriega Work Phone: [facility] 10-23-2022 15:38-0500 SaO2% (BldA) [Mass fraction] 98 % MD Fermin Noriega Work Phone: [facility] 10-23-2022 15:38-0500 Systolic blood pressure 153 mm[Hg] MD Fermin Noriega Work Phone: [facility] 04-25-2022 10:02-0400 Body temperature 97.8 [degF] MD Fermin Noriega Work Phone: [facility] 04-25-2022 10:02-0400 Body weight 129.27 kg MD Fermin Noriega Work Phone: [facility] 04-25-2022 10:02-0400 Diastolic blood pressure 85 mm[Hg] MD Fermin Noriega Work Phone: [facility] 04-25-2022 10:02-0400 Heart rate 94 /min MD Fermin Noriega Work Phone: [facility] 04-25-2022 10:02-0400 Respiratory rate 16 /min MD Fermin Noriega Work Phone: [facility] 04-25-2022 10:02-0400 SaO2% (BldA) [Mass fraction] 97 % MD Fermin Noriega Work Phone: [facility] 04-25-2022 10:02-0400 Systolic blood pressure 143 mm[Hg] MD Fermin Noriega Work Phone: [facility] 01-18-2021 14:02-0500 Body height 154.94 cm MD Fermin Noriega Work Phone: [facility] Encounters Encounter Date Encounter Type Care Provider Facility Start: 07-13-2024 End: 07-13-2024 ambulatory KELIN VELOZ [facility] Start: 07-13-2024 End: 07-13-2024 Lab Drop off LUCINDA VELOZ [facility] Start: 07-13-2024 End: 07-13-2024 ambulatory FERMIN NORIEGA Facility:[facility] Start: 07-13-2024 End: 07-13-2024 Patient encounter procedure LUCINDA VELOZ [facility] Start: 06-15-2024 End: 06-15-2024 ambulatory PRANEETH SOTO Not Available Start: 05-25-2024 End: 05-25-2024 ambulatory FERMIN NORIEGA Not Available Start: 05-21-2024 ambulatory KELIN VELOZ Fac ility:[facility] Start: 05-15-2024 End: 05-15-2024 ambulatory AYANNA ROSARIO Not Available Start: 03-27-2024 End: 03-27-2024 ambulatory Fermin Noriega Facility:[facility] Start: 03-27-2024 End: 03-27-2024 Departed Referred MD Fermin Noriega Work Phone: [facility] Start: 03-27-2024 End: 03-27-2024 ambulatory MD Fermin Noriega Work Phone: [facility] Work Phone: Start: 03-27-2024 End: 03-27-2024 Patient encounter procedure MD Fermin Noriega Work Phone: [facility] Work Phone: Start: 01-31-2024 End: 01-31-2024 ambulatory MD Fermin Noriega Work Phone: [facility] Work Phone: Start: 01-31-2024 End: 01-31-2024 Patient encounter procedure MD Fermin Noriega Work Phone: [facility] Work Phone: Start: 01-28-2024 End: 01-28-2024 ambulatory Alma Louise Lawtone [facility] Start: 01-28-2024 End: 01-28-2024 Lab Drop off Alma Louise Sabrina [facility] Start: 01-08-2024 End: 01-08-2024 ambulatory MD Fermin Noriega Work Phone: [facility] Work Phone: Start: 01-08-2024 End: 01-08-2024 Patient encounter procedure MD Fermin Noriega Work Phone: [facility] Work Phone: Start: 01-08-2024 ambulatory Griselda Faye Facility:[facility] Start: 01-08-2024 Registered Recurring MD Fermin Noriega Work Phone: [facility] Work Phone: Start: 12-23-2023 End: 12-23-2023 Patient encounter procedure Fermin Noriega MD Work Phone: [facility] Comment on above: Hematuria, unspecifi ed type (Primary Dx); History of hematuria; Morbid obesity ([facility]); Adult BMI 50.0-59.9 kg/sq m ([facility]) Start: 12-23-2023 End: 12-24-2023 ambulatory FERMIN NORIEGA Not Available Start: 12-23-2023 Chart abstracting Fermin reynolds MD Work Phone: [facility] Start: 12-09-2023 End: 12-09-2023 ambulatory PRANEETH SOTO Not Available Start: 11-27-2023 End: 11-27-2023 ambulatory FERMIN NORIEGA Facility[place] Start: 10-28-2023 End: 10-29-2023 ambulatory FERMIN NORIEGA Not Available Start: 10-18-2023 End: 10-18-2023 ambulatory Fermin Noriega Facility:[facility] Start: 10-18-2023 End: 10-18-2023 ambulatory MD Fermin Noriega Work Phone: [facility] Work Phone: Start: 10-18-2023 End: 10-18-2023 Departed Referred MD Fermin Noriega Work Phone: [facility] Work Phone: Start: 10-14-2023 End: 10-14-2023 ambulatory Fermin Noriega Facility:[facility] Start: 10-14-2023 End: 10-14-2023 ambulatory MD Fermin Noriega Work Phone: [facility] Work Phone: Start: 10-14-2023 End: 10-14-2023 Patient encounter procedure MD Fermin Noriega Work Phone: [facility] Work Phone: Start: 06-19-2023 End: 06-19-2023 ambulatory MD Fermin Noriega Work Phone: [facility] Work Phone: Start: 06-19-2023 End: 06-19-2023 Registered Recurring MD Fermin Noriega [facility] Phone: [facility] Work Phone: Start: 06-04-2023 End: 06-04-2023 Lab Drop off Alma Bennett [facility] Start: 10-23-2022 End: 10-23-2022 ambulatory MD Fermin Noriega Work Phone: [facility] Work Phone: Start: 10-23-2022 End: 10-23-2022 Registered Recurring MD Fermin Noriega Work Phone: [facility] Start: 10-11-2022 End: 10-11-2022 Patient encounter procedure MD Fermin Noriega [facility] Phone[facility] Start: 06-04-2022 End: 06-04-2022 Discharged Recurring MD Fermin Noriega Work Phone: [facility] Start: 04-25-2022 Registered Recurring MD Fermin Noriega Work Phone: [facility] Start: 06-12-2021 End: 06-13-2021 ambulatory PIEDAD BROWN Facility:[facility] Start: 05-22-2021 End: 05-23-2021 ambulatory PIEDAD BROWN Facility:[facility] Start: 12-04-2020 End: 12-04-2020 Patient encounter procedure Praneeth Soto -Pre-Surgical Testing Procedures Date Procedure Procedure Detail Performing Clinician Start: 12-23-2023 Urnls dip stick/tabl et rgnt non-auto w/o micrscp Fermin Noriega MD Work Phone: Start: 10-14-2023 Screening mammograph y of left breast MD Fermin Noriega Work Phone: Start: 01-28-2023 Dual energy X-ray absorptiometry MD Fermin Noriega Work Phone: Start: 10-11-2022 Mammography of left breast MD Fermin Noriega Work Phone: Start: 01-24-2021 Dual energy X-ray absorptiometry MD Fermin Noriega Work Phone: Start: 08-18-2017 End: 08-18-2017 Colonoscopy Fermin Noriega MD Work Phone: Excision of breast LUCINDA VELOZ Ligation of fallopian tube Louise VELOZ Tonsillectomy LUCINDA VELOZ Plan of Treatment Date Care Activity Detail Author Start: 08-18-2027 Screening for malign ant neoplasm of colon [facility] Start: 06-10-2024 End: 06-10-2024 Patient encounter procedure 06/10/2024 2:45 PM EDT Office Visit [facility] [address] [id number] Praneeth Soto DO [address] [facility] [address] [place] [address] [facility] Start: 03-27-2024 Bacteria identified in Urine by Culture [facility] Start: 12-23-2023 End: 12-23-2023 Patient encounter procedure 12/23/2023 4:00 PM EST Office Visit [facility] [address] [place] [address] Fermin Noriega MD [address] [facility] [place] [address] (Fax) [facility] Start: 07-18-2023 Influenza vaccination Influenza Vacc ine (#1) [facility] Start: 1995 Screening for malign ant neoplasm of cervix [facility] Start: 1986 Screening for malign ant neoplasm of cervix Pap Smear [facility] Start: 1965 Screening for malign ant neoplasm of colon [facility] DXA Skeletal system.axial Views for bone density [facility] Glucose measurement estimated from glycated hemoglobin [facility] Hemoglobin A1c measurement [facility] Work Phone: [facility] Immunizations Immunization Date Immunization Notes Care Provider Fa cility 06-12-2021 SARS-CoV-2 (COVID-19 ) mRNA BNT-162b2 vax LUCINDA ROSELIA [facility] 05-22-2021 SARS-CoV-2 (COVID-19 ) mRNA BNT-162b2 vax LUCINDA ROSELIA [facility] Payers Date Payer Category Payer Managed Care HMO (unspecified) [employer] [id number] 2023-Present [address] [place] [address] HMO [id number] 2023 Unknown [id number] 2020 Self-pay [id number] 1965 Unknown [id number] [id number]. 593 1965 Unknown [id number] 2.16.840.1.096805.3.579.2. 593 1965 Unknown [id number] 2.16.840.1.961956.3.579.2. 1259 1965 Unknown [id number] 2.16.840.1.803613.3.579.2. 1259 1965 Unknown [id number] 2.16.840.1.575355.3.579.2. 1259 1965 Unknown [id number] 2.16.840.1.707157.3.579.2. 1259 1965 Unknown [id number] 2.16.840.1.258417.3.579.2. 1259 1965 Unknown [id number] 2.16.840.1.293905.3.579.2. 1259 1965 Unknown [id number] 2.16.840.1.735260.3.579.2. 727 1965 Unknown [id number] 2.16.840.1.041016.3.579.2. 727 1965 Unknown [id number] 2.16.840.1.557352.3.579.2. 727 1965 Unknown [id number] 2.16.840.1.772443.3.579.2. 727 1965 Unknown [id number] 2.16.840.1.454317.3.579.2. 727 1959 Unknown [id number] Unknown [id number] 2.16.840.1.386066.3.579.2. 531 Unknown [id number] 2.16.840.1.113161.3.579.2. 531 Unknown [id number] 2.16.840.1.629351.3.579.2. 531 Unknown [id number] 2.16.840.1.097131.3.579.2. 531 Social History Date Type Detail Facility Start: 12-04-2020 End: 07-13-2024 Tobacco smoking status NHIS Never smoked tobacco (finding) [facility] Start: 1965 Sex Assigned At Female F [facility] Start: 04-29-2022 Tobacco smoking stat us NHIS Smoker (finding) [facility] Start: 09-15-2023 End: 10-28-2023 Sex Assigned At Female [facility] Start: 06-05-2023 Tobacco use and exposure Smokeless tobacco non-user [facility] Start: 12-09-2023 Alcohol intake Current drinke r of alcohol (finding) [facility] Start: 09-15-2023 End: 10-28-2023 History of Social function [facility] Within the last year , have you been afraid of your partner or ex-partner? No [facility] How often do you att end islam or taoist services? Patient refused [facility] Are you now , , , , never or living with a partner? [facility] How often to you hav e a drink containing alcohol? Monthly or less [facility] How many standard drinks containing alcohol do you have on a typical day? 1 or 2 [facility] How often do you hav e 6 or more drinks on 1 occasion? Never [facility] Do you feel stress - tense, restless, nervous, or anxious, or unable to sleep at night because your mind is troubled all the time - these days [OSQ] Not at all [facility] (I/We) worried wheth er (my/our) food would run out before (I/we) got money to buy more. Never true [facility] In the past 12 month s, was there a time when you were not able to pay the mortgage or rent on time? Yes [facility] Start: 06-05-2023 Education 13 [facility] Start: 09-21-2023 Alcohol Comment Caffeine intak e : 1-2 cups per day [facility] Start: 1965 Sex Assigned At Not on file [facility] Goals Date Patient Goal Desired Activity /State Functional Status Date Assessment Result Facility 07-13-2024 Functional Status N/A [facility] Clinical Notes 01-19-2021 to 07-13-2024 Fermin Noriega MD - 12/23/2023 4:00 PM EST Note Date & Type Note Facility 07-13-2024 Hospital Discharg e instructions Patient Education 07/13/2024 14:34:50 Cystoscopy Cystoscopy Cystoscopy is a procedure that is used to help diagnose and sometimes treat conditions that affect the lower urinary tract. The lower urinary tract includes the bladder and the urethra. The urethra is the tube that drains urine from the bladder. Cystoscopy is done using a thin, tube-shaped instrument with a light and camera at the end (cystoscope). The cystoscope may be hard or flexible, depending on the goal of the procedure. The cystoscope is inserted through the urethra, into the bladder. Cystoscopy may be recommended if you have: Urinary tract infections that keep coming back. Blood in the urine (hematuria). An inability to control when you urinate (urinary incontinence) or an overactive bladder. Unusual cells found in a urine sample. A blockage in the urethra, such as a urinary stone. Painful urination. An abnormality in the bladder found during an intravenous pyelogram (IVP) or CT scan. Cystoscopy may also be done to remove a sample of tissue to be examined under a microscope (biopsy). Tell a health care provider about: Any allergies you have. All medicines you are taking, including vitamins, herbs, eye drops, creams, and ibfm-jmz-cgyltny medicines. Any problems you or family members have had with anesthetic medicines. Any blood disorders you have. Any surgeries you have had. Any medical conditions you have. Whether you are or may be . What are the risks? Generally, this is a safe procedure. However, problems may occur, including: Infection. Bleeding. Allergic reactions to medicines. Damage to other structures or organs. What happens before the procedure? Medicines Ask your health care provider about: Changing or stopping your regular medicines. This is especially important if you are taking diabetes medicines or blood thinners. Taking medicines such as aspirin and ibuprofen. These medicines can thin your blood. Do not take these medicines unless your health care provider tells you to take them. Taking tfdk-sav-ruimwdn medicines, vitamins, herbs, and supplements. Tests You may have an exam or testing, such as: X-rays of the bladder, urethra, or kidneys. CT scan of the abdomen or pelvis. Urine tests to check for signs of infection. General instructions Follow instructions from your health care provider about eating or drinking restrictions. Ask your health care provider what steps will be taken to help prevent infection. These steps may include: ?Washing skin with a germ-killing soap. ?Taking antibiotic medicine. Plan to have a responsible adult take you home from the hospital or clinic. What happens during the procedure? You will be given one or more of the following: ?A medicine to help you relax (sedative). ?A medicine to numb the area (local anesthetic). The area around the opening of your urethra will be cleaned. The cystoscope will be passed through your urethra into your bladder. Germ-free (sterile) fluid will flow through the cystoscope to fill your bladder. The fluid will stretch your bladder so that your health care provider can clearly examine your bladder robison. Your doctor will look at the urethra and bladder. Your doctor may take a biopsy or remove stones. The cystoscope will be removed, and your bladder will be emptied. The procedure may vary among health care providers and hospitals. What can I expect after the procedure? After the procedure, it is common to have: Some soreness or pain in your abdomen and urethra. Urinary symptoms. These include: ?Mild pain or burning when you urinate. Pain should stop within a few minutes after you urinate. This may last for up to 1 week. ?A small amount of blood in your urine for several days. ?Feeling like you need to urinate but producing only a small amount of urine. Follow these instructions at home: Medicines Take bnyk-fil-tbxtxeu and prescription medicines only as told by your health care provider. If you were prescribed an antibiotic medicine, take it as told by your health care provider. Do not stop taking the antibiotic even if you start to feel better. General instructions Return to your normal activities as told by your health care provider. Ask your health care provider what activities are safe for you. If you were given a sedative during the procedure, it can affect you for several hours. Do not drive or operate machinery until your health care provider says that it is safe. Watch for any blood in your urine. If the amount of blood in your urine increases, call your health care provider. Follow instructions from your health care provider about eating or drinking restrictions. If a tissue sample was removed for testing (biopsy) during your procedure, it is up to you to get your test results. Ask your health care provider, or the department that is doing the test, when your results will be ready. Drink enough fluid to keep your urine pale yellow. Keep all follow-up visits. This is important. Contact a health care provider if: You have pain that gets worse or does not get better with medicine, especially pain when you urinate. You have trouble urinating. You have more blood in your urine. Get help right away if: You have blood clots in your urine. You have abdominal pain. You have a fever or chills. You are unable to urinate. Summary Cystoscopy is a procedure that is used to help diagnose and sometimes treat conditions that affect the lower urinary tract. Cystoscopy is done using a thin, tube-shaped instrument with a light and camera at the end. After the procedure, it is common to have some soreness or pain in your abdomen and urethra. Watch for any blood in your urine. If the amount of blood in your urine increases, call your health care provider. If you were prescribed an antibiotic medicine, take it as told by your health care provider. Do not stop taking the antibiotic even if you start to feel better. This information is not intended to replace advice given to you by your health care provider. Make sure you discuss any questions you have with your health care provider. Document Revised: 07/17/2022 Document Reviewed: 06/15/2021 [employer] Patient Education 2022 [employer]. Follow Up Care 05/21/2024 11:17:49 With:[employer], Ho Boyd, URL Address: [address] [place] [address]- When: Unknown Comments:sched cysto With:LUCINDA VELOZ PA-C, URL Address: [address] [place] [address]. [place] [address] When: Unknown Comments:post-op cysto [facility] 07-13-2024 Note Urology Office/Clini c Note Chief Complaint referral for dysuria and microhematuria HPI Staff 58 year old female new patient referred by Dr Emory Chino MD for Dysuria and Hematuria. Urinary symptoms off and on for a year. Urine cx 11/27/23- 2,000 cfu/ml mixed skin contaminants. Urine cx 05/15/24 neg Dysuria: denies Incomplete bladder emptying: denies. States that she takes her time and just sits for a while Hematuria: denies Frequency: every 2-3 hours Urgency: yes Nocturia: 2x Stream: strong steady stream Leaking: occasionally during the day time Post void dripping: denies Wearing pads/ Depends: pads changes 3-4x Urge incontinence: states that she has this at night when she is trying to get out of bed to go all the pressure starts her stream and she is unable to stop Stress incontinence: occasionally with coughing and sneezing Incontinence without Sensory Awareness: denies Abdominal pain: denies Flank pain: denies Sexual complaints: no History of Present Illness Tests reviewed: reviewed UA, referral records I have reviewed the previous health record information and history for this patient from Dr Emory Chino MD . I have reviewed and verified the staff HPI to be accurate for this encounter. Review of Systems PHQ Score Initial Depression Screen Score: 0 SCORE No fever, chills, malaise, myalgia. No rash/lesions. No chest pain, palpitations, or SOB. No abdominal pain, nausea, vomiting. No unilateral calf swelling, redness, pain Physical Exam Vitals & Measurements T: 37 ?C(Temporal Artery) HR: 80(Peripheral) RR: 16 BP: 134/86 HT: 61 in HT: 155 cm WT: 131.8 kg WT: 289.96 lb BMI: 54.86 General: nontoxic, NAD Mouth: moist mucosa Lungs: normal respiratory effort Cardio: regular rate, good distal perfusion Abdomen: nondistended, no suprapubic distention or tenderness, no CVA tenderness Neurologic: Grossly normal Skin: No rashes or suspicious lesions Assessment/Plan 58 year old female new patient referred by Dr Emory Chino MD for Dysuria and Hematuria. +hx breast ca. on letrozole. 1. Microscopic hematuria (R31.29: Other microscopic hematuria) UA 04/09/24 - small blood UA 05/15/24 - moderate blood UA today neg. states urine always shows blood for the past year but Cx typically negative. denies gross hematuria. AUA microhematuria risk assessment: age FM 50-59, M 40-59 : intermediate smoking hx <10 pack years : low RBCs on UA unknwon additional risk factors : irritative LUTS yes, chronic and unchanged family hx cancer no occupational exposure no hx chronic indwelling foreign body in urinary tract no previously low risk with no prior imaging/cysto : no, first episode Discussed options. The patient is aware that a distinct etiology of the hematuria may not be clear upon conclusion of the workup. Will initiate hematuria workup to include upper urinary tract imaging, as well as evaluation of the urinary cells with urine cytology and possible a FISH test. A cystoscopy will be scheduled to rule out lower urinary tract pathology. The rationale for this workup has been discussed, and all questions have been answered. The risks and benefits for cystoscopy have been discussed. The risks include bleeding, infection, and irritation of the bladder and urinary channel, among others. The patient, after being informed of procedural details and after questions have been answered, wishes to proceed. Full informed consent has been obtained. Will order Local anesthesia. _ Based on the above risk assessment the pt is considered INTERMEDIATE risk - will order cysto and RY. Urine sent for cytology today. Ordered: Urine Cytology ([facility]) 2. Mixed incontinence urge and stress (N39.46: Mixed incontinence) BBSQ 22. +mixed inc during day, changes pads 3-4x per day Pt states that she has worst incontinence at night when she is trying to get out of bed to go all the pressure starts her stream and she is unable to stop. Discussed tx options for bothersome urinary sx including oral medications, Botox, SNM. We agree we will wait on results of hematuria eval and then decide on tx options. 3. UTI symptoms (R39.9: Unspecified symptoms and signs involving the genitourinary system) UCx: 11/27/23 - 2k mixed skin contaminants 05/15/24 - negative (UA showed moderate blood, and large leuks, tx'd with Macrobid 100mg BID x 7 days) Pt states she has been having UTI sxs on and off for about a year. Sxs usually include discomfort not pain, not burning , increased frequency, and foul odor. Pt states when she takes abx, sxs improve but normally return shortly after finishing abx. Has never had +urine cx during these times. UA today shows trace leuks, negative for blood or nitrites. Currently asx. Discussed the different etiologies of UTI sxs wo true cx-proven infections like stones, stenosis, inflammation, bladder irritants, among others. See #1. Ordered: E&M of New Patient Moderate 45-59 Min 91120 Urine Cyto (more content not included)... [facility] Comment on above: Result Comment: Elec tronically Signed By: LUCINDA VELOZ PA-C\.br\Date and Time Signed: 07/13/24 14:58 EDT\.br\Electronically Co-Signed By: Chanda Mcfarlane\.br\Date and Time Co-Signed: 07/13/24 14:43 EDT\.br\Electronically Co-Signed By: Chanda Mcfarlane\.br\Date and Time Co-Signed: 07/13/24 14:45 EDT 07-13-2024 Note Patient Education Urology Cystoscopy Cystoscopy is a procedure that is used to help diagnose and sometimes treat conditions that affect the lower urinary tract. The lower urinary tract includes the bladder and the urethra. The urethra is the tube that drains urine from the bladder. Cystoscopy is done using a thin, tube-shaped instrument with a light and camera at the end (cystoscope). The cystoscope may be hard or flexible, depending on the goal of the procedure. The cystoscope is inserted through the urethra, into the bladder. Cystoscopy may be recommended if you have: ? Urinary tract infections that keep coming back. ? Blood in the urine (hematuria). ? An inability to control when you urinate (urinary incontinence) or an overactive bladder. ? Unusual cells found in a urine sample. ? A blockage in the urethra, such as a urinary stone. ? Painful urination. ? An abnormality in the bladder found during an intravenous pyelogram (IVP) or CT scan. Cystoscopy may also be done to remove a sample of tissue to be examined under a microscope (biopsy). Tell a health care provider about: ? Any allergies you have. ? All medicines you are taking, including vitamins, herbs, eye drops, creams, and ceed-lgp-minfvip medicines. ? Any problems you or family members have had with anesthetic medicines. ? Any blood disorders you have. ? Any surgeries you have had. ? Any medical conditions you have. ? Whether you are or may be . What are the risks? Generally, this is a safe procedure. However, problems may occur, including: ? Infection. ? Bleeding. ? Allergic reactions to medicines. ? Damage to other structures or organs. What happens before the procedure? Medicines Ask your health care provider about: ? Changing or stopping your regular medicines. This is especially important if you are taking diabetes medicines or blood thinners. ? Taking medicines such as aspirin and ibuprofen. These medicines can thin your blood. Do not take these medicines unless your health care provider tells you to take them. ? Taking mpox-edu-qwjmphj medicines, vitamins, herbs, and supplements. Tests You may have an exam or testing, such as: ? X-rays of the bladder, urethra, or kidneys. ? CT scan of the abdomen or pelvis. ? Urine tests to check for signs of infection. General instructions ? Follow instructions from your health care provider about eating or drinking restrictions. ? Ask your health care provider what steps will be taken to help prevent infection. These steps may include: ? Washing skin with a germ-killing soap. ? Taking antibiotic medicine. ? Plan to have a responsible adult take you home from the hospital or clinic. What happens during the procedure? ? You will be given one or more of the following: ? A medicine to help you relax (sedative). ? A medicine to numb the area (local anesthetic). ? The area around the opening of your urethra will be cleaned. ? The cystoscope will be passed through your urethra into your bladder. ? Germ-free (sterile) fluid will flow through the cystoscope to fill your bladder. The fluid will stretch your bladder so that your health care provider can clearly examine your bladder robison. ? Your doctor will look at the urethra and bladder. Your doctor may take a biopsy or remove stones. ? The cystoscope will be removed, and your bladder will be emptied. The procedure may vary among health care providers and hospitals. What can I expect after the procedure? After the procedure, it is common to have: ? Some soreness or pain in your abdomen and urethra. ? Urinary symptoms. These include: ? Mild pain or burning when you urinate. Pain should stop within a few minutes after you urinate. This may last for up to 1 week. ? A small amount of blood in your urine for several days. ? Feeling like you need to urinate but producing only a small amount of urine. Follow these instructions at home: Medicines ? Take imsi-aga-eiswhho and prescription medicines only as told by your health care provider. ? If you were prescribed an antibiotic medicine, take it as told by your health care provider. Do not stop taking the antibiotic even if you start to feel better. General instructions ? Return to your normal activities as told by your health care provider. Ask your health care provider what activities are safe for you. ? If you were given a sedative during the procedure, it can affect you for several hours. Do not drive or operate machinery until your health care provider says that it is safe. ? Watch for any blood in your urine. If the amount of blood in your urine increases, call your health care provider. ? Follow instructions from your health care provider about eating or drinking restrictions. ? If a tissue sample was removed for testing (biopsy) during your procedure, it is up to you to get your test results. Ask your health care provider, (more content not included)... [facility] 07-13-2024 Evaluation + Plan note Diagnostic Tests PendingUrine Cytology ([facility]) 07/13/24 [facility] 12-23-2023 History of Presen t illness Narrative Patient ID: Kimberley Macdonald is a 58 y.o. female who presents for: Patient complains of pt states she had horrible pain with urination Friday and Friday and thinks she possibly passed a stone and since has felt better. He/She has had symptoms for several weeks. Visit Vitals OB Status Postmenopausal Smoking Status Never No Known Allergies Current Outpatient Medications Medication Instructions calcium carbonate-vitamin D 600-200 MG-UNIT tablet Every 24 hours DULoxetine (CYMBALTA) 20 mg, Oral, Daily letrozole (FEMARA) 2.5 mg, Oral, Daily Multiple Vitamin (Multivitamin Adult) tablet as directed Orally Probiotic Product (PROBIOTIC DAILY PO) 1 capsule, Oral, 3 times weekly Assessment/Plan Diagnoses and all orders for this visit: Hematuria, unspecified type We were going to see her today for the hematuria as it was culture negative. We are going to do a limited external genitalia exam. Since the patient is otherwise doing well, the urinalysis demonstrates resolved hematuria, and she gives a history suggestive of kidney stone, we have mutually agreed not to have a formal office visit today. Should any of her symptoms recur we will need to reevaluate as appropriate. History of hematuria - POCT Urinalysis dipstick Morbid obesity ([facility]) Adult BMI 50.0-59.9 kg/sq m ([facility]) documented in this encounter [facility] 06-04-2023 Evaluation + Plan note Diagnostic Tests PendingVaginitis/Vaginosis, DNA Probe 06/04/23 [facility] 10-29-2022 Progress note Note Date/Time October 23, 2022 3:52pm [facility] [place] [address] Hem/Onc Follow Up Note - OP Signed Patient: Kimberley Macdonald MR#: [id number] : 1965 Acct:[id number] Age/Sex: 57 / F Type: REG RCR Copies to: MD Fermin Spangler MD Paul C Laffay,DO~ Subjective Date/Time of Service: Date of Service: 10/23/2022 Time of Service: 15:51 Chief Complaint: Patient is here for a 6 month follow up for right breast cancer. Had mammogram and exam in September with Dr Soto. HPI: 10/23/2022: Kimberley is here for follow-up for her breast cancer on letrozole. She denies new complaints today and continues to do well overall. Her las mammogram was 10/11/22 and negative for malignancy. She will follow-up in [address] Faye. Next DEXA is due January 2023 and we will call with results. 04/25/22: Patient is here for 6-month follow-up. She has tolerated letrozole 2.5 mg daily very well without any problems. She denies joint pain or muscle pain. She denies hot flashes. She is not taking calcium or vitamin D. Her last bone density study showed osteopenia in January 2021. Her last left mammogram was negative on 10/02/2021. 10/25/2021:Kimbelrey presents for 6 month survivorship visit for her breast cancer. She is doing very well overall without complaints today. She denies any hot flashes, no arthralgias or myalgias on letrozole. Energy is good. She denies anyskin changes or new lumps. She had 2 breast exams done in the last month, so we will defer examination at today's visit. She will continue to be followed every 6 months, alternating with general surgery for exam and assessment of AI therapy. 05/31/2021: Kimberley is here for survivorship visit. She noted increased arthralgias of bilateral hips starting anastrozole therapy, therefore we held her anastrozole for 2 weeks, then gave her a trial of letrozole 2.5 mg daily for30 days which she tolerated well. No troubling hot flashes. We discussed that after survivorship visit today she will be followed every 6 months, alternating with general surgery for exam and assessment of AI therapy. No other concerns. 02/14/2021: Well healed from mastectomy--no post-mastectomy pain. We reviewed Oncotype Dx Recurrence Score which returned low at 2 (3% recurrence risk at 9 years with AI or Tamoxifen alone)--<1% benefit to chemotherapy. She had baseline DEXA with mild osteopenia Left femoral neck, otherwise normal. AdvisedOTC Caltrate (Calcium/Vit D twice daily). We discussed Tamoxifen vs. Aromatase Inhibitors--AI preferred due to lower risk of thrombosis, endometrial cancer. 20% incidence myalgias/arthralgias, osteoporosis risk. Goal 5 years of therapy. Phone followup in one month to assess therapy tolerance. Next f/u 3 months forsurvivorship visit. PREVIOUS HISTORY (Consult 01/18/2021): This is a 55 year old female who was informed of abnormal screening mammogram. No palpable lumps, tenderness, or skin changes. She was offered lumpectomy vs. mastectomy and chose right mastectomy with sentinel lymph node biopsy 12/06/2020: Invasive ductal carcinoma, [place] grade 1, 1.1cm with negative margins for invasive cancer and DCIS, ER+ 91-100%, ND+ 90-100%, Her2 1+ IHC (not overexpressed). 0/[address]+ for cancer. pT1c pN0 (sn). Healing well, minimal pain meds. Medical history: Morbid obesity, Anxiety/Depression, (), menopausal, no h/o hormone replacement therapy. Mother diagnosed with breast cancer at age 80. We discussed recurrence risk assessment utilizing Oncotype Dx from tumor tissue to determine if chemotherapy benefit. She agrees to sending tissue and baselineDEXA scan for aromatase inhibitor therapy. Followup in 2 weeks to review results. No indication for radiation therapy evaluation after prior mastectomy. DIAGNOSIS: 1. Stage I ER+, ND+, Her2 negative Grade I invasive ductal carcinoma. OncotypeDx recurrence score 2 (low risk). 2. Anxiety/depression 3. Morbid obesity - Summary of Therapies Summary of Therapies: 1. 12/06/2020 right mastectomy, sentinel lymph node biopsy. OncotypeDX showed recurrence score of 2. 2. 02/14/2021 Started Anastrozole 1mg daily. 3. 05/31/2021, she was having intolerable toxicities from anastrozole and changed to letrozole 2.5 mg daily p.o. daily, which is tolerated well. ROS Details: All systems reviewed & no additional complaints except as documented PMF - Medical History Medical History: Medical History (Last Reviewed 06/01/21 @ 12:39 by Griselda Faye MD) Anxiety Breast cancer Right Depression Heart murmur - Surgical History Surgical History: Surgical History (Last Reviewed 06/01/21 @ 12:39 by Griselda Faye MD) History of section x 2 History of laparoscopy infection rt fallopian tube - Family History Family History: Family History (Last Reviewed 06/01/21 @ 12:39 by Griselda Faye MD) Mother Breast cancer Hypertension Stroke Kidney failure Father Hypertension Depression Brother Cerebellar ataxia - Social History Smoking Status: Never smoker Substance Use Type: None Home Medications & Allergies Allergies No Known Allergies Allergy (Verified 04/25/22 10:02) Home Medications cholecalciferol (vit D3) 5,500 unit-vit K2 200 mcg tablet (Dosoquin) 1 tab PO DAILY suppliment 12/04/20 [History Confirmed 10/23/22] duloxetine 30 mg capsule,delayed release 30 mg PO DAILY depression 12/04/20 [History Confirmed 10/23/22] ibuprofen 800 mg tablet 800 mg PO TID PRN Pain #20 tabs 02/03/21 [Rx Confirmed 10/23/22] letrozole 2.5 mg tablet 2.5 mg PO DAILY 90 days #90 tabs 08/12/22 [Rx Confirmed 10/23/22] Objective - Height/Weight Height/Weight: Height 5 ft 1 in Weight 130.5 kg - Vital Signs Vital Signs: 10/23/22 15:38 Temperature 98.3 F Pulse Rate [Left Brachial] 78 Respiratory Rate 20 Blood Pressure [Left Arm] 153/83 H 02 Sat by Pulse Oximetry 98 Oxygen Delivery Method Room Air Physical Exam Narrative: CONSTITUTIONAL: The patient is in no acute distress. HEAD / FACE: Normocephalic. EYES: Pupils are equal and reactive to light. Conjunctivae and lids are benign in appearance. Ocular movement intact. EARS: Hearing grossly intact. NOSE / MOUTH / THROAT: Nose, mouth, tongue and oropharynx are benign in appearance. No signs of inflammation. NECK / THYROID: Neck is supple. Thyroid is symmetrical, without thyromegaly, masses or palpable nodules. BREAST EXAM: s/p right mastectomy. No new nodules noted on exam. L breast without nodules or skin changes. No nipple discharge. No axillary adenopathy to R or L LYMPHATIC: No palpable cervical, supraclavicular, axillary adenopathy. RESPIRATORY: Normal to inspection. Lungs clear. Normal effort. CARDIOVASCULAR: Regular rate and rhythm. No murmurs, gallops, or rubs. ABDOMEN: Soft, nontender and non-distended. Normoactive bowel sounds INTEGUMENTARY: The skin is unremarkable. No rashes. No suspicious lesions MUSCULOSKELETAL: Normal musculature, no joint deformities or abnormalities, normal range of motion for all four extremities. NEUROLOGICAL: Alert and oriented. Cranial nerves intact. No gross motor or sensory deficits. PSYCHIATRIC: No current anxiety or evidence of depression. Assessment and Plan - TNM Staging Staging: Stage I (pT1c pN0) on right mastectomy 12/06/2020. Oncotype Dx recurrence score 2. (1) Carcinoma of right breast, estrogen and progesterone receptor positive This is a 56 year old lady with Stage I (pT1c pN0) ER+ND+Her2- right breast cancer s/p right mastectomy 12/06/2020. Oncotype DX showed very low recurrence score. She started Arimidex initially, changed to letrozole in May 2021 due tojoint pain. She has tolerated letrozole very well without any complaints. She understands she will continue letrozole for 5 years. She will follow-up with Dr. Faye in 6 months. Her next left breast mammogram is due in September this year, to be ordered by Dr. Soto. On foot exam and noticed lymphedema of her right upper extremity. I will refer her to lymphedema clinic. I have also advised her to take calcium and vitamin D given the osteopenia and taking aromatase inhibitor. Patient is worried about familial breast cancer because her mother also has breast cancer. I mentioned genetic counseling might be beneficial but she wants to think about it. She is also due for repeat DEXA scan in January 2023. 02/14/2021: Oncotype Dx results with low recurrence score 2 She expressed understanding of staging, risk assessment, and discussion of therapy options. Baseline DEXA prior to planned hormonal therapy--osteopenia left femoral neck, otherwise normal bone density. We discussed Tamoxifen vs. Anastrozole 1mg dailyfor goal 5 year course--she consents to anastrozole and we will contact her by phone in one month to assess her tolerance after a one month. The patient had a phone follow-up 03/07/2021 after noting that she had bilateral hip pain that she attributed to anastrozole. We changed her therapy to letrozole 2.5 mg daily and she notes her hip arthralgias have resolved. She agrees to continue letrozole therapy for 5 years. Next followup with me in 4 months for exam since she regularly follows with Dr. Soto her surgeon. Moderate complexity visit for discussion of tolerance of adjuvant hormonal therapy and survivorship template review. 10/25/2021: she is tolerating letrozole very well without complaints. We plan to continue this therapy for 5 years. Her next survivorship follow-up will be in [address] Faye. We will continue to assess for AI toxicity and complete regular breast examinations, alternating these with Dr. Soto. SURVIVORSHIP: - Discussed side effects that are present now, that may go away; include: (fatigue/feeling tired, numbness at surgical scar site, nail changes, hot flashes, myalgias, vaginal dryness) - Discussed may have a higher risk of: 1.) Decreased bone density, 2.) Lymphedema Call the clinic with any of the followin. New swelling or reddening of an arm 2. new lumps, tender areas in the breast 3. new pain that doesn't go away 4. rash in the surgical/radiation area 5. side effects and/or symptoms that are not well controlled Follow up/Imagin.) Surgical Provider: Dr. Soto. Left mammogram in September,. 2.) Medical Oncology: Dr. Faye every 6 months x 2 years; then annually) 3.) PCP- at least annually; will order any non breast cancer related screenings/tests. Healthy Lifestyle Advice: - Limit alcohol intake (<1 drink/day female) - Moderate exercise (walking 150 minutes/week or 30 mins 5 x week) - Abstain from tobacco products - Use sunscreen with at least SPF 15 - Bone health: Take daily Calcium (1,000mg/Vit D3 supplementation (1000mg/2000iu- winter months) daily. [facility] (12 month patient goals): 1.) Making more time for myself 10/23/2022: She continues to do well overall and is without new complaints. She continues on letrozole 2.5mg PO daily. Mammogram 10/11/22 negative for malignancy. She will be due for next DEXA in January and will follow-up with Dr. Faye in 6 months, sooner as needed. She is in agreement with this plan and has no questions. (2) Osteopenia Qualifiers: Osteopenia location: hip Laterality: left Qualified Code(s): M85.852 - Other specified disorders of bone density and structure, left thigh Baseline DEXA in January 2021 showed osteopenia in her left femoral neck. We toldher again to start taking Calcium/Vit D OTC bid. She will repeat DEXA every 2 years while on AI therapy. Next DEXA due January 2023 (3) Encounter for monitoring aromatase inhibitor therapy Started Anastrozole 1mg daily initially, changed to Letrozole due to hip pain. She continues to have much better tolerance to Letrozole and will remain on therapy for a total of 5 years. (4) Lymph edema - Chemo Plan Chemo Plan (Dose, Rate, Freq): Letrozole 2.5 mg po daily for 5 year course. Start of therapy was 02/14/2021. Goal of Treatment: Curative - Time with Patient Time Spent with Patient (Follow Up Visit): 25 minutes Coordination of Care & Counseling Time: Greater than 50% of time spent with patient was for coordination of care (as documented) and zqij-nq-uwyz counseling of patient and/or family. Dictated By: Alicja Goff APRN DD/ [id number] Signed By: <Electronically signed by ARETHA Goff> 10/29/22 0958 [facility] Work Phone: 1(853) 414-916306-09-2022 Progress note Author Pastor Allison [facility] April 25, 2022 10:57am Note Date/Time April 25, 2022 10:28 am [facility] at [address] [address] Hem/Onc Follow Up Note - OP Signed Patient: Kimberley Macdonald MR#: [id number] : 1965 Acct:[id number] Age/Sex: 56 / F Type: REG RCR Copies to: MD Praneeth Camejo,DO~ Subjective Date/Time of Service: Date of Service: 04/25/2022 Time of Service: 10:25 Chief Complaint: Patient is here today for a 6 month follow up visit for breast cancer and has no new concerns HPI: 04/25/22: Patient is here for 6-month follow-up. She has tolerated letrozole 2.5 mg daily very well without any problems. She denies joint pain or muscle pain. She denies hot flashes. She is not taking calcium or vitamin D. Her last bone density study showed osteopenia in January 2021. Her last left mammogram was negative on 10/02/2021. 10/25/2021:Kimberley presents for 6 month survivorship visit for her breast cancer. She is doing very well overall without complaints today. She denies any hot flashes, no arthralgias or myalgias on letrozole. Energy is good. She denies anyskin changes or new lumps. She had 2 breast exams done in the last month, so we will defer examination at today's visit. She will continue to be followed every 6 months, alternating with general surgery for exam and assessment of AI therapy. 05/31/2021: Kimberley is here for survivorship visit. She noted increased arthralgias of bilateral hips starting anastrozole therapy, therefore we held her anastrozole for 2 weeks, then gave her a trial of letrozole 2.5 mg daily for30 days which she tolerated well. No troubling hot flashes. We discussed that after survivorship visit today she will be followed every 6 months, alternating with general surgery for exam and assessment of AI therapy. No other concerns. 02/14/2021: Well healed from mastectomy--no post-mastectomy pain. We reviewed Oncotype Dx Recurrence Score which returned low at 2 (3% recurrence risk at 9 years with AI or Tamoxifen alone)--<1% benefit to chemotherapy. She had baseline DEXA with mild osteopenia Left femoral neck, otherwise normal. AdvisedOTC Caltrate (Calcium/Vit D twice daily). We discussed Tamoxifen vs. Aromatase Inhibitors--AI preferred due to lower risk of thrombosis, endometrial cancer. 20% incidence myalgias/arthralgias, osteoporosis risk. Goal 5 years of therapy. Phone followup in one month to assess therapy tolerance. [facility] PREVIOUS HISTORY (Consult 01/18/2021): This is a 55 year old female who was informed of abnormal screening mammogram. No palpable lumps, tenderness, or skin changes. She was offered lumpectomy vs. mastectomy and chose right mastectomy with sentinel lymph node biopsy 12/06/2020: Invasive ductal carcinoma, [place] grade 1, 1.1cm with negative margins for invasive cancer and DCIS, ER+ 91-100%, ND+ 90-100%, Her2 1+ IHC (not overexpressed). 0/5 sentinel LN+ for cancer. pT1c pN0 (sn). Healing well, minimal pain meds. Medical history: Morbid obesity, Anxiety/Depression, (), menopausal, no h/o hormone replacement therapy. Mother diagnosed with breast cancer at age 80. We discussed recurrence risk assessment utilizing Oncotype Dx from tumor tissue to determine if chemotherapy benefit. She agrees to sending tissue and baselineDEXA scan for aromatase inhibitor therapy. Followup in 2 weeks to review results. No indication for radiation therapy evaluation after prior mastectomy. DIAGNOSIS: 1. Stage I ER+, ND+, Her2 negative Grade I invasive ductal carcinoma. OncotypeDx recurrence score 2 (low risk). 2. Anxiety/depression 3. Morbid obesity - Summary of Therapies Summary of Therapies: 1. 12/06/2020 right mastectomy, sentinel lymph node biopsy. OncotypeDX showed recurrence score of 2. 2. 02/14/2021 Started Anastrozole 1mg daily. 3. 05/31/2021, she was having intolerable toxicities from anastrozole and changed to letrozole 2.5 mg daily p.o. daily, which is tolerated well. ROS Details: All systems reviewed & no additional complaints except as documented Subjective/ROS - Narrative: CONSTITUTIONAL: Negative for fatigue, negative for fever or night sweats. HEAD AND NECK: Negative for changes in hearing and vision. Negative for mouth ulcers, nasal congestion and nasal drainage. BREASTS: S/p right mastectomy healing well, no right upper extremity lymphedema; No masses left breast PULMONARY: Negative for chest pain, cough and dyspnea. CARDIOVASCULAR: Negative for claudication and irregular heartbeat/palpitations. GASTROINTESTINAL: Negative for abdominal pain, constipation, decreased appetite,diarrhea, nausea or vomiting. GENITOURINARY: Negative for dysuria and hematuria. ENDOCRINE: Negative for cold intolerance and heat intolerance. CENTRAL NERVOUS SYSTEM: Negative for gait disturbance and headache. PSYCHIATRIC: Positive for anxiety and depression--no current symptoms. DERMATOLOGICAL: Negative for pruritus and rash. Negative for suspicious skin lesions. MUSCULOSKELETAL: Negative for back pain and bone/joint symptoms. Prior hip arthralgias have resolved since changing anastrozole to letrozole. HEMATOLOGICAL: Negative for bleeding and easy bruising. Negative for history of transfusion or thromboembolic disease ALLERGY: Negative for environmental allergies and food allergies. [facility] - Medical History Medical History: Medical History (Last Reviewed 06/01/21 @ 12:39 by Griselda Faye MD) Anxiety Breast cancer Right Depression Heart murmur - Surgical History Surgical History: Surgical History (Last Reviewed 06/01/21 @ 12:39 by Griselda Faye MD) History of section x 2 History of laparoscopy infection rt fallopian tube - Family History Family History: Family History (Last Reviewed 06/01/21 @ 12:39 by Griselda Faye MD) Mother Breast cancer Hypertension Stroke Kidney failure Father Hypertension Depression Brother Cerebellar ataxia - Social History Smoking Status: Never smoker Substance Use Type: None Home Medications & Allergies Allergies No Known Allergies Allergy (Verified 04/25/22 10:02) Home Medications cholecalciferol (vit D3) 5,500 unit-vit K2 200 mcg tablet (Dosoquin) 1 tab PO DAILY 12/04/20 [History Confirmed 04/25/22] duloxetine 30 mg capsule,delayed release 30 mg PO DAILY 12/04/20 [History Confirmed 04/25/22] ibuprofen 800 mg tablet 800 mg PO TID PRN #20 tab 02/03/21 [Rx Confirmed 04/25/22] letrozole 2.5 mg tablet 2.5 mg PO DAILY #90 tab 04/17/22 [Rx Confirmed 04/25/22] Objective - Height/Weight Height/Weight: Height 5 ft 1 in Weight 129.274 kg - Vital Signs Vital Signs: 04/25/22 10:02 Temperature 97.8 F Pulse Rate [Left Brachial] 94 H Respiratory Rate 16 Blood Pressure [Left Arm] 143/85 H 02 Sat by Pulse Oximetry 97 Physical Exam Narrative: CONSTITUTIONAL: The patient is in no acute distress. HEAD / FACE: Normocephalic. EYES: Pupils are equal and reactive to light. Conjunctivae and lids are benign in appearance. Ocular movement intact. EARS: Hearing grossly intact. NOSE / MOUTH / THROAT: Nose, mouth, tongue and oropharynx are benign in appearance. No signs of inflammation. NECK / THYROID: Neck is supple. Thyroid is symmetrical, without thyromegaly, masses or palpable nodules. BREAST EXAM: s/p right mastectomy. LYMPHATIC: No palpable cervical, supraclavicular, axillary adenopathy. RESPIRATORY: Normal to inspection. Lungs clear. Normal effort. CARDIOVASCULAR: Regular rate and rhythm. No murmurs, gallops, or rubs. ABDOMEN: Soft, nontender and non-distended. INTEGUMENTARY: The skin is unremarkable. No rashes. No suspicious lesions MUSCULOSKELETAL: Normal musculature, no joint deformities or abnormalities, normal range of motion for all four extremities. EXTREMITIES: right UE lymphoedema. NEUROLOGICAL: Alert and oriented. Cranial nerves intact. No gross motor or sensory deficits. PSYCHIATRIC: No current anxiety or evidence of depression. - ECOG Performance Status ECOG Score: 0 Assessment and Plan (1) Carcinoma of right breast, estrogen and progesterone receptor positive This is a 56 year old lady with Stage I (pT1c pN0) ER+ND+Her2- right breast cancer s/p right mastectomy 12/06/2020. Oncotype DX showed very low recurrence score. She started Arimidex initially, changed to letrozole in May 2021 due tojoint pain. She has tolerated letrozole very well without any complaints. She understands she will continue letrozole for 5 years. She will follow-up with Dr. Faye in 6 months. Her next left breast mammogram is due in September this year, to be ordered by Dr. Soto. On foot exam and noticed lymphedema of her right upper extremity. I will refer her to lymphedema clinic. I have also advised her to take calcium and vitamin D given the osteopenia and taking aromatase inhibitor. Patient is worried about familial breast cancer because hermother also has breast cancer. I mentioned genetic counseling might be beneficial but she wants to think about it. She is also due for repeat DEXA scan in January 2023. 02/14/2021: Oncotype Dx results with low recurrence score 2 She expressed understanding of staging, risk assessment, and discussion of therapy options. Baseline DEXA prior to planned hormonal therapy--osteopenia left femoral neck, otherwise normal bone density. We discussed Tamoxifen vs. Anastrozole 1mg dailyfor goal 5 year course--she consents to anastrozole and we will contact her by phone in one month to assess her tolerance after a one month. The patient had a phone follow-up 03/07/2021 after noting that she had bilateral hip pain that she attributed to anastrozole. We changed her therapy to letrozole 2.5 mg daily and she notes her hip arthralgias have resolved. She agrees to continue letrozole therapy for 5 years. Next followup with me in 4 months for exam since she regularly follows with Dr. Soto her surgeon. Moderate complexity visit for discussion of tolerance of adjuvant hormonal therapy and survivorship template review. 10/25/2021: she is tolerating letrozole very well without complaints. We plan to continue this therapy for 5 years. Her next survivorship follow-up will be in [address] Faye. We will continue to assess for AI toxicity and complete regular breast examinations, alternating these with Dr. Soto. SURVIVORSHIP: - Discussed side effects that are present now, that may go away; include: (fatigue/feeling tired, numbness at surgical scar site, nail changes, hot flashes, myalgias, vaginal dryness) - Discussed may have a higher risk of: 1.) Decreased bone density, 2.) Lymphedema Call the clinic with any of the followin. New swelling or reddening of an arm 2. new lumps, tender areas in the breast 3. new pain that doesn't go away 4. rash in the surgical/radiation area 5. side effects and/or symptoms that are not well controlled Follow up/Imagin.) Surgical Provider: Dr. Soto. Left mammogram in September,. 2.) Medical Oncology: Dr. Faye every 6 months x 2 years; then annually) 3.) PCP- at least annually; will order any non breast cancer related screenings/tests. Healthy Lifestyle Advice: - Limit alcohol intake (<1 drink/day female) - Moderate exercise (walking 150 minutes/week or 30 mins 5 x week) - Abstain from tobacco products - Use sunscreen with at least SPF 15 - Bone health: Take daily Calcium (1,000mg/Vit D3 supplementation (1000mg/2000iu- winter months) daily. [facility] (12 month patient goals): 1.) Making more time for myself (2) Osteopenia Qualifiers: Osteopenia location: hip Laterality: left Qualified Code(s): M85.852 - Other specified disorders of bone density and structure, left thigh Baseline DEXA in January 2021 showed osteopenia in her left femoral neck. I told her again to start taking Calcium/Vit D OTC bid. She will repeat DEXA every 2 years while on AI therapy. (3) Encounter for monitoring aromatase inhibitor therapy Started Anastrozole 1mg daily initially, changed to Letrozole due to hip pain. She continues to have much better tolerance to Letrozole and will remain on therapy for a total of 5 years. (4) Lymph edema - Chemo Plan Goal of Treatment: Curative - Time with Patient Time Spent with Patient (Follow Up Visit): 25 minutes Coordination of Care & Counseling Time: Greater than 50% of time spent with patient was for coordination of care (as documented) and [id number] counseling of patient and/or family. Assessment & Plan (1) Carcinoma of right breast, estrogen and progesterone receptor positive Status: Chronic (2) Osteopenia Qualifiers: Osteopenia location: hip Laterality: left Qualified Code(s): M85.852 - Other specified disorders of bone density and structure, left thigh Status: Acute (3) Encounter for monitoring aromatase inhibitor therapy Status: Acute (4) Lymph edema Status: Acute Right upper extremity lymphoedema is noted on exam. She is asymptomatic. Will refer her to lymphoedema clinic. - Chemo Plan Chemo Plan: Description Diagnosis Status Date Breast cancer Acute Description Diagnosis Status Date Osteopenia Acute Description DiagnosisStatus Date Carcinoma of right breast, estrogen and progesterone receptor positive Acute Description Diagnosis Status Date Breast cancer Acute Malignant neoplasm of unspecified site of right female breast (04/25/22) Malignant neoplasm of unspecified site of unspecified female breast (04/25/22) - Time Spent with Patient Greater than 50% of time spent with patient was for coordination of care (as documented) and [id number] counseling of patient and/or family. Dictated By: Pastor Allison MD DD/ [id number] Signed By: <Electronically signed by Pastor Allison MD> 04/25/22 1056 [facility] Work Phone: [phone]) 341-604012-09-2021 Progress note Author Alicja Goff [facility] October 25, 2021 3:59pm Note Date/Time October 25, 2021 3 :52pm [facility] [place] [address] Hem/Onc Follow Up Note - OP Signed Patient: Kimberley Macdonald MR#: [id number] : 1965 Acct:[id number] Age/Sex: 56 / F Type: REG RCR Copies to: MD Fermin Spangler MD Paul C Laffay,DO~ Subjective Date/Time of Service: Date of Service: 10/25/2021 Time of Service: 15:48 Chief Complaint: Patient is here for a 4 month follow up. She has a mammogram last month with Dr Soto. No concerns voiced at this time. HPI: 10/25/2021:Kimberley presents for 6 month survivorship visit for her breast cancer. She is doing very well overall without complaints today. She denies any hot flashes, no arthralgias or myalgias on letrozole. Energy is good. She denies anyskin changes or new lumps. She had 2 breast exams done in the last month, so we will defer examination at today's visit. She will continue to be followed every 6 months, alternating with general surgery for exam and assessment of AI therapy. 05/31/2021: Kimberley is here for survivorship visit. She noted increased arthralgias of bilateral hips starting anastrozole therapy, therefore we held her anastrozole for 2 weeks, then gave her a trial of letrozole 2.5 mg daily for30 days which she tolerated well. No troubling hot flashes. We discussed that after survivorship visit today she will be followed every 6 months, alternating with general surgery for exam and assessment of AI therapy. No other concerns. 02/14/2021: Well healed from mastectomy--no post-mastectomy pain. We reviewed Oncotype Dx Recurrence Score which returned low at 2 (3% recurrence risk at 9 years with AI or Tamoxifen alone)--<1% benefit to chemotherapy. She had baseline DEXA with mild osteopenia Left femoral neck, otherwise normal. AdvisedOTC Caltrate (Calcium/Vit D twice daily). We discussed Tamoxifen vs. Aromatase Inhibitors--AI preferred due to lower risk of thrombosis, endometrial cancer. 20% incidence myalgias/arthralgias, osteoporosis risk. Goal 5 years of therapy. Phone followup in one month to assess therapy tolerance. [facility] PREVIOUS HISTORY (Consult 01/18/2021): This is a 55 year old female who was informed of abnormal screening mammogram. No palpable lumps, tenderness, or skin changes. She was offered lumpectomy vs. mastectomy and chose right mastectomy with sentinel lymph node biopsy 12/06/2020: Invasive ductal carcinoma, [place] grade 1, 1.1cm with negative margins for invasive cancer and DCIS, ER+ 91-100%, ND+ 90-100%, Her2 1+ IHC (not overexpressed). 0/[address] for cancer. pT1c pN0 (sn). Healing well, minimal pain meds. Medical history: Morbid obesity, Anxiety/Depression, (), menopausal, no h/o hormone replacement therapy. Mother diagnosed with breast cancer at age 80. We discussed recurrence risk assessment utilizing Oncotype Dx from tumor tissue to determine if chemotherapy benefit. She agrees to sending tissue and baselineDEXA scan for aromatase inhibitor therapy. Followup in 2 weeks to review results. No indication for radiation therapy evaluation after prior mastectomy. DIAGNOSIS: 1. Stage I ER+, ND+, Her2 negative Grade I invasive ductal carcinoma. OncotypeDx recurrence score 2 (low risk). 2. Anxiety/depression 3. Morbid obesity - Summary of Therapies Summary of Therapies: 1. 12/06/2020 right mastectomy, sentinel lymph node biopsy 2. 02/14/2021 Started Anastrozole 1mg daily. At follow-up 05/31/2021, she was having intolerable toxicities from anastrozole and was changed to letrozole 2.5 mg daily p.o. daily for 30-day trial after 2 weeks off anastrozole. This was tolerated well and we plan to continue 5-year course. ROS Details: All systems reviewed & no additional complaints except as documented PMF - Medical History Medical History: Medical History (Last Reviewed 06/01/21 @ 12:39 by Griselda Faye MD) Anxiety Breast cancer Right Depression Heart murmur - Surgical History Surgical History: Surgical History (Last Reviewed 06/01/21 @ 12:39 by Griselda Faye MD) History of section x 2 History of laparoscopy infection rt fallopian tube - Family History Family History: Family History (Last Reviewed 06/01/21 @ 12:39 by Griselda Faye MD) Mother Breast cancer Hypertension Stroke Kidney failure Father Hypertension Depression Brother Cerebellar ataxia - Social History Smoking Status: Never smoker Substance Use Type: None Home Medications & Allergies Allergies No Known Allergies Allergy (Verified 10/25/21 14:38) Home Medications cholecalciferol (vit D3) 5,500 unit-vit K2 200 mcg tablet (Dosoquin) 1 tab PO DAILY 12/04/20 [History Confirmed 10/25/21] duloxetine 30 mg capsule,delayed release 30 mg PO DAILY 12/04/20 [History Confirmed 10/25/21] ibuprofen 800 mg tablet 800 mg PO TID PRN #20 tab 02/03/21 [Rx Confirmed 10/25/21] letrozole 2.5 mg tablet 2.5 mg PO DAILY #90 tab 04/05/21 [Rx Confirmed 10/25/21] Objective - Height/Weight Height/Weight: Height 5 ft 1 in Weight 127.233 kg - Vital Signs Vital Signs: 10/25/21 14:38 Temperature 98 F Pulse Rate [Left Brachial] 84 Respiratory Rate 20 Blood Pressure [Left Arm] 148/84 H 02 Sat by Pulse Oximetry 96 Physical Exam Narrative: CONSTITUTIONAL: The patient is in no acute distress. HEAD / FACE: Normocephalic. EYES: Pupils are equal and reactive to light. Conjunctivae and lids are benign in appearance. Ocular movement intact. EARS: Hearing grossly intact. NOSE / MOUTH / THROAT: Nose, mouth, tongue and oropharynx are benign in appearance. No signs of inflammation. NECK / THYROID: Neck is supple. Thyroid is symmetrical, without thyromegaly, masses or palpable nodules. BREAST EXAM: deferred today LYMPHATIC: No palpable cervical, supraclavicular, axillary, or inguinal adenopathy. RESPIRATORY: Normal to inspection. Lungs clear to auscultation and percussion. No wheezing, rales, rhonchi or rubs. Normal effort. CARDIOVASCULAR: Regular rate and rhythm. No murmurs, gallops, or rubs. VASCULAR: Carotid, radial, femoral and pedal pulses present bilaterally. No bruits. ABDOMEN: Bowel sounds normoactive. Soft, nontender and non-distended. No hepatosplenomegaly. No masses. GENITOURINARY: No CVA tenderness. No suprapubic fullness or tenderness. No groinadenopathy. No evidence of hernias. INTEGUMENTARY: The skin is unremarkable. No rashes. No suspicious lesions BACK / SPINE: The back is nontender. MUSCULOSKELETAL: Normal musculature, no joint deformities or abnormalities, normal range of motion for all four extremities. EXTREMITIES: No edema, cyanosis or clubbing. No Florencia sign. NEUROLOGICAL: Alert and oriented. Cranial nerves intact. No gross motor or sensory deficits. PSYCHIATRIC: No current anxiety or evidence of depression. Assessment and Plan (1) Carcinoma of right breast, estrogen and progesterone receptor positive This is a 55 year old lady recently found to have abnormal right mammogram, Stage I (pT1c pN0) on right mastectomy 12/06/2020. She is not interested in reconstructive surgery at this time. She denies any significant post op pain and is healing well. We discussed sending tumor specimen for Oncotype Dx to determine recurrence risk and whether she has benefit from adjuvant chemotherapy. We will send for baseline DEXA prior to planned hormonal therapy. No indication for radiation therapy with 1.1cm tumor, negative margins s/p mastectomy. 02/14/2021: Oncotype Dx results with low recurrence score 2 She expressed understanding of staging, risk assessment, and discussion of therapy options. Baseline DEXA prior to planned hormonal therapy--osteopenia left femoral neck, otherwise normal bone density. We discussed Tamoxifen vs. Anastrozole 1mg dailyfor goal 5 year course--she consents to anastrozole and we will contact her by phone in one month to assess her tolerance after a one month. The patient had a phone follow-up 03/07/2021 after noting that she had bilateral hip pain that she attributed to anastrozole. We changed her therapy to letrozole 2.5 mg daily and she notes her hip arthralgias have resolved. She agrees to continue letrozole therapy for 5 years. Next followup with me in 4 months for exam since she regularly follows with Dr. Soto her surgeon. Moderate complexity visit for discussion of tolerance of adjuvant hormonal therapy and survivorship template review. 10/25/2021: she is tolerating letrozole very well without complaints. We plan to continue this therapy for 5 years. Her next survivorship follow-up will be in [address] Faye. We will continue to assess for AI toxicity and complete regular breast examinations, alternating these with Dr. Soto. SURVIVORSHIP: - Patient provided with written treatment summary/survivorship care plan, as well as, Facing [facility]; Life after Cancer Therapy booklet and [facility] cancer nutrition booklet - Discussed side effects that are present now, that may go away; include: (fatigue/feeling tired, numbness at surgical scar site, nail changes, hot flashes, myalgias, vaginal dryness) - Discussed may have a higher risk of: 1.) Decreased bone density, 2.) Lymphedema Call the clinic with any of the followin. New swelling or reddening of an arm 2. new lumps, tender areas in the breast 3. new pain that doesn't go away 4. rash in the surgical/radiation area 5. side effects and/or symptoms that are not well controlled Follow up/Imagin.) Surgical Provider: Dr. Soto- as directed 2.) Medical Oncology: Dr. Faye (every 3-4 months x 3 years; every 6 months x 2 years; then annually) 3.) PCP- at least annually; will order any non breast cancer related screenings/tests. Healthy Lifestyle Advice: - Limit alcohol intake (<1 drink/day female) - Moderate exercise (walking 150 minutes/week or 30 mins 5 x week) - Abstain from tobacco products - Use sunscreen with at least SPF 15 - Bone health: Take daily Calcium (1,000mg/Vit D3 supplementation (1000mg/2000iu- winter months) daily. [facility] (12 month patient goals): 1.) Making more time for myself (2) Osteopenia Qualifiers: Osteopenia location: hip Laterality: left Qualified Code(s): M85.852 - Other specified disorders of bone density and structure, left thigh Baseline DEXA ordered prior to discussion of possible aromatase inhibitor therapy--reviewed January 2021 showing mild osteopenia left femoral neck. She agreed to add Calcium/Vit D OTC bid and will reassess DEXA every 2 years while on anastrozole therapy. (3) Encounter for monitoring aromatase inhibitor therapy Consented to adjuvant Anastrozole 1mg daily x 5 year course. This was not well tolerated due to diffuse hip arthralgias and we changed her therapy to letrozole2.5 mg daily. She continues to have much better tolerance to this and will remain on therapy for a total of 5 years. - Chemo Plan Goal of Treatment: Curative - Time with Patient Time Spent with Patient (Follow Up Visit): 25 minutes Coordination of Care & Counseling Time: Greater than 50% of time spent with patient was for coordination of care (as documented) and [id number] counseling of patient and/or family. Dictated By: Alicja Banks APRN DD/ [id number] Signed By: <Electronically signed by ARETHA Banks> 10/25/21 1557 [facility] Work Phone: [phone]) 714-468107-16-2021 Progress note Author Griselda Faye [facility] June 01, 2021 1:06pm Note Date/Time May 31, 2021 3:43 pm [facility] [place] [address] Hem/Onc Follow Up Note - OP Signed Patient: Kimberley Macdonald MR#: [id number] : 1965 Acct:[id number] Age/Sex: 55 / F Type: REG RCR Copies to: MD Praneeth Camejo,~ Subjective Date/Time of Service: Date of Service: 05/31/2021 Time of Service: 15:42 Chief Complaint: Patient is here today for 4 month follow up visit for breast cancer and no new concerns HPI: 05/31/2021: Kimberley is here for survivorship visit. She noted increased arthralgias of bilateral hips starting anastrozole therapy, therefore we held her anastrozole for 2 weeks, then gave her a trial of letrozole 2.5 mg daily for30 days which she tolerated well. No troubling hot flashes. We discussed that after survivorship visit today she will be followed every 6 months, alternating with general surgery for exam and assessment of AI therapy. No other concerns. 02/14/2021: Well healed from mastectomy--no post-mastectomy pain. We reviewed Oncotype Dx Recurrence Score which returned low at 2 (3% recurrence risk at 9 years with AI or Tamoxifen alone)--<1% benefit to chemotherapy. She had baseline DEXA with mild osteopenia Left femoral neck, otherwise normal. AdvisedOTC Caltrate (Calcium/Vit D twice daily). We discussed Tamoxifen vs. Aromatase Inhibitors--AI preferred due to lower risk of thrombosis, endometrial cancer. 20% incidence myalgias/arthralgias, osteoporosis risk. Goal 5 years of therapy. Phone followup in one month to assess therapy tolerance. [facility] PREVIOUS HISTORY (Consult 01/18/2021): This is a 55 year old female who was informed of abnormal screening mammogram. No palpable lumps, tenderness, or skin changes. She was offered lumpectomy vs. mastectomy and chose right mastectomy with sentinel lymph node biopsy 12/06/2020: Invasive ductal carcinoma, [place] grade 1, 1.1cm with negative margins for invasive cancer and DCIS, ER+ 91-100%, ND+ 90-100%, Her2 1+ IHC (not overexpressed). 0/[address]+ for cancer. pT1c pN0 (sn). Healing well, minimal pain meds. Medical history: Morbid obesity, Anxiety/Depression, (), menopausal, no h/o hormone replacement therapy. Mother diagnosed with breast cancer at age 80. We discussed recurrence risk assessment utilizing Oncotype Dx from tumor tissue to determine if chemotherapy benefit. She agrees to sending tissue and baselineDEXA scan for aromatase inhibitor therapy. Followup in 2 weeks to review results. No indication for radiation therapy evaluation after prior mastectomy. DIAGNOSIS: 1. Stage I ER+, ND+, Her2 negative Grade I invasive ductal carcinoma. OncotypeDx recurrence score 2 (low risk). 2. Anxiety/depression 3. Morbid obesity - Summary of Therapies Summary of Therapies: 1. 12/06/2020 right mastectomy, sentinel lymph node biopsy 2. 02/14/2021 Started Anastrozole 1mg daily. At follow-up 05/31/2021, she was having intolerable toxicities from anastrozole and was changed to letrozole 2.5 mg daily p.o. daily for 30-day trial after 2 weeks off anastrozole. This was tolerated well and we plan to continue 5-year course. ROS Details: All systems reviewed & no additional complaints except as documented Subjective/ROS - Narrative: CONSTITUTIONAL: Negative for fatigue, negative for fever or night sweats. HEAD AND NECK: Negative for changes in hearing and vision. Negative for mouth ulcers, nasal congestion and nasal drainage. BREASTS: S/p right mastectomy healing well, no right upper extremity lymphedema; No masses left breast PULMONARY: Negative for chest pain, cough and dyspnea. CARDIOVASCULAR: Negative for claudication and irregular heartbeat/palpitations. GASTROINTESTINAL: Negative for abdominal pain, constipation, decreased appetite,diarrhea, nausea or vomiting. GENITOURINARY: Negative for dysuria and hematuria. ENDOCRINE: Negative for cold intolerance and heat intolerance. CENTRAL NERVOUS SYSTEM: Negative for gait disturbance and headache. PSYCHIATRIC: Positive for anxiety and depression--no current symptoms. DERMATOLOGICAL: Negative for pruritus and rash. Negative for suspicious skin lesions. MUSCULOSKELETAL: Negative for back pain and bone/joint symptoms. Prior hip arthralgias have resolved since changing anastrozole to letrozole. HEMATOLOGICAL: Negative for bleeding and easy bruising. Negative for history of transfusion or thromboembolic disease ALLERGY: Negative for environmental allergies and food allergies. PMFSH - History Attestation statement: The following information was validated with the patient. Source: Old Records Reviewed - Medical History Medical History: Medical History (Last Reviewed 06/01/21 @ 12:39 by Griselda Faye MD) Anxiety Breast cancer Right Depression Heart murmur - Surgical History Surgical History: Surgical History (Last Reviewed 06/01/21 @ 12:39 by Griselda Faye MD) History of section x 2 History of laparoscopy infection rt fallopian tube - Family History Family History: Family History (Last Reviewed 06/01/21 @ 12:39 by Griselda Faye MD) Mother Breast cancer Hypertension Stroke Kidney failure Father Hypertension Depression Brother Cerebellar ataxia - Social History Smoking Status: Never smoker Substance Use Type: None Home Medications & Allergies Allergies No Known Allergies Allergy (Verified 05/31/21 15:37) Home Medications cholecalciferol (vit D3) 5,500 unit-vit K2 200 mcg tablet (Dosoquin) 1 tab PO DAILY 12/04/20 [History Confirmed 05/31/21] duloxetine 30 mg capsule,delayed release 30 mg PO DAILY 12/04/20 [History Confirmed 05/31/21] tramadol 50 mg tablet (Ultram) 50 mg PO Q6H PRN 7 Days #45 tab 12/07/20 [Rx Confirmed 05/31/21] ibuprofen 800 mg tablet 800 mg PO TID PRN #20 tab 02/03/21 [Rx Confirmed 05/31/21] letrozole 2.5 mg tablet 2.5 mg PO DAILY #90 tab 04/05/21 [Rx Confirmed 05/31/21] Objective - Height/Weight Height/Weight: Height 5 ft 1 in Weight 125.191 kg - Vital Signs Vital Signs: 05/31/21 15:37 Temperature 98.0 F Pulse Rate [Left Brachial] 99 H Respiratory Rate 20 Blood Pressure [Left Arm] 149/86 H 02 Sat by Pulse Oximetry 97 - Emotional Needs Assessment Emotional Needs Assessment: Emotional Needs Identified? No Physical Exam Narrative: CONSTITUTIONAL: The patient is in no acute distress. HEAD / FACE: Normocephalic. EYES: Pupils are equal and reactive to light. Conjunctivae and lids are benign in appearance. Ocular movement intact. EARS: Hearing grossly intact. NOSE / MOUTH / THROAT: Nose, mouth, tongue and oropharynx are benign in appearance. No signs of inflammation. NECK / THYROID: Neck is supple. Thyroid is symmetrical, without thyromegaly, masses or palpable nodules. BREAST EXAM: Left breast--no masses, no skin changes, no nipple discharge, no axillary fullness; S/P Right mastectomy/sentinel lymph node biopsy, well healed. LYMPHATIC: No palpable cervical, supraclavicular, axillary, or inguinal adenopathy. RESPIRATORY: Normal to inspection. Lungs clear to auscultation and percussion. No wheezing, rales, rhonchi or rubs. Normal effort. CARDIOVASCULAR: Regular rate and rhythm. No murmurs, gallops, or rubs. VASCULAR: Carotid, radial, femoral and pedal pulses present bilaterally. No bruits. ABDOMEN: Bowel sounds normoactive. Soft, nontender and non-distended. No hepatosplenomegaly. No masses. GENITOURINARY: No CVA tenderness. No suprapubic fullness or tenderness. No groinadenopathy. No evidence of hernias. INTEGUMENTARY: The skin is unremarkable. No rashes. No suspicious lesions BACK / SPINE: The back is nontender. MUSCULOSKELETAL: Normal musculature, no joint deformities or abnormalities, normal range of motion for all four extremities. EXTREMITIES: No edema, cyanosis or clubbing. No Florencia sign. NEUROLOGICAL: Alert and oriented. Cranial nerves intact. No gross motor or sensory deficits. PSYCHIATRIC: No current anxiety or evidence of depression. - ECOG Performance Status ECOG Score: 1 Results - Labs Labs: No new labs for review. - Impressions No new imaging for review. Assessment and Plan - TNM Staging Staging: Stage I (pT1c pN0) on right mastectomy 12/06/2020. Oncotype Dx recurrence score 2. (1) Carcinoma of right breast, estrogen and progesterone receptor positive This is a 55 year old lady recently found to have abnormal right mammogram, Stage I (pT1c pN0) on right mastectomy 12/06/2020. She is not interested in reconstructive surgery at this time. She denies any significant post op pain and is healing well. We discussed sending tumor specimen for Oncotype Dx to determine recurrence risk and whether she has benefit from adjuvant chemotherapy. We will send for baseline DEXA prior to planned hormonal therapy. No indication for radiation therapy with 1.1cm tumor, negative margins s/p mastectomy. 02/14/2021: Oncotype Dx results with low recurrence score 2 She expressed understanding of staging, risk assessment, and discussion of therapy options. Baseline DEXA prior to planned hormonal therapy--osteopenia left femoral neck, otherwise normal bone density. We discussed Tamoxifen vs. Anastrozole 1mg dailyfor goal 5 year course--she consents to anastrozole and we will contact her by phone in one month to assess her tolerance after a one month. The patient had a phone follow-up 03/07/2021 after noting that she had bilateral hip pain that she attributed to anastrozole. We changed her therapy to letrozole 2.5 mg daily and she notes her hip arthralgias have resolved. She agrees to continue letrozole therapy for 5 years. Next followup with me in 4 months for exam since she regularly follows with Dr. Soto her surgeon. Moderate complexity visit for discussion of tolerance of adjuvant hormonal therapy and survivorship template review. SURVIVORSHIP: - Patient provided with written treatment summary/survivorship care plan, as well as, Facing Forward; Life after Cancer Therapy booklet and [facility] cancer nutrition booklet - Discussed side effects that are present now, that may go away; include: (fatigue/feeling tired, numbness at surgical scar site, nail changes, hot flashes, myalgias, vaginal dryness) - Discussed may have a higher risk of: 1.) Decreased bone density, 2.) Lymphedema Call the clinic with any of the followin. New swelling or reddening of an arm 2. new lumps, tender areas in the breast 3. new pain that doesn't go away 4. rash in the surgical/radiation area 5. side effects and/or symptoms that are not well controlled Follow up/Imagin.) Surgical Provider: Dr. Soto- as directed 2.) Medical Oncology: Dr. Faye (every 3-4 months x 3 years; every 6 months x 2 years; then annually) 3.) PCP- at least annually; will order any non breast cancer related screenings/tests. Healthy Lifestyle Advice: - Limit alcohol intake (<1 drink/day female) - Moderate exercise (walking 150 minutes/week or 30 mins 5 x week) - Abstain from tobacco products - Use sunscreen with at least SPF 15 - Bone health: Take daily Calcium (1,000mg/Vit D3 supplementation (1000mg/2000iu- winter months) daily. [facility] (12 month patient goals): 1.) Making more time for myself (2) Osteopenia Qualifiers: Osteopenia location: hip Laterality: left Qualified Code(s): M85.852 - Other specified disorders of bone density and structure, left thigh Baseline DEXA ordered prior to discussion of possible aromatase inhibitor therapy--reviewed January 2021 showing mild osteopenia left femoral neck. She agreed to add Calcium/Vit D OTC bid and will reassess DEXA every 2 years while on anastrozole therapy. (3) Encounter for monitoring aromatase inhibitor therapy Consented to adjuvant Anastrozole 1mg daily x 5 year course. This is not well tolerated due to diffuse hip arthralgias and we changed her therapy to letrozole2.5 mg daily with better tolerance. - Chemo Plan Chemo Plan (Dose, Rate, Freq): Letrozole 2.5 mg po daily for 5 year course. Start of therapy was 02/14/2021. Goal of Treatment: Curative - Time with Patient Time Spent with Patient (Follow Up Visit): 35 minutes Coordination of Care & Counseling Time: Greater than 50% of time spent with patient was for coordination of care (as documented) and [id number] counseling of patient and/or family. Dictated By: Griselda Faye MD DD/ [id number] Signed By: <Electronically signed by MD Griselda Faye> 06/01/21 [address] [facility] Work Phone: [phone]) 343-757503-31-2021 Progress note Author Griselda Faye [facility] February 14, 2021 1:02pm Note Date/Time February 14, 2021 9:0 2am [facility] at [address] [address] Hem/Onc Follow Up Note - OP Signed Patient: Kimberley Macdonald MR#: [id number] : 1965 Acct:[id number] Age/Sex: 55 / F Type: REG RCR Copies to: MD Praneeth Camejo,DO~ Subjective Date/Time of Service: Date of Service: 02/14/2021 Time of Service: 09:00 Chief Complaint: Patient is here today for 3 week follow up visit for breast cancer and had bone scan done and oncotype testing. No new concerns HPI: 02/14/2021: Well healed from mastectomy--no post-mastectomy pain. We reviewed Oncotype Dx Recurrence Score which returned low at 2 (3% recurrence risk at 9 years with AI or Tamoxifen alone)--<1% benefit to chemotherapy. She had baseline DEXA with mild osteopenia Left femoral neck, otherwise normal. AdvisedOTC Caltrate (Calcium/Vit D twice daily). We discussed Tamoxifen vs. Aromatase Inhibitors--AI preferred due to lower risk of thrombosis, endometrial cancer. 20% incidence myalgias/arthralgias, osteoporosis risk. Goal 5 years of therapy. Phone followup in one month to assess therapy tolerance. [facility] PREVIOUS HISTORY (Consult 01/18/2021): This is a 55 year old female who was informed of abnormal screening mammogram. No palpable lumps, tenderness, or skin changes. She was offered lumpectomy vs. mastectomy and chose right mastectomy with sentinel lymph node biopsy 12/06/2020: Invasive ductal carcinoma, [place] grade 1, 1.1cm with negative margins for invasive cancer and DCIS, ER+ 91-100%, ND+ 90-100%, Her2 1+ IHC (not overexpressed). 0/[address] for cancer. pT1c pN0 (sn). Healing well, minimal pain meds. Medical history: Morbid obesity, Anxiety/Depression, (), menopausal, no h/o hormone replacement therapy. Mother diagnosed with breast cancerat age 80. We discussed recurrence risk assessment utilizing Oncotype Dx from tumor tissue to determine if chemotherapy benefit. She agrees to sending tissue and baselineDEXA scan for aromatase inhibitor therapy. Followup in 2 weeks to review results. No indication for radiation therapy evaluation after prior mastectomy. DIAGNOSIS: 1. Stage I ER+, ND+, Her2 negative Grade I invasive ductal carcinoma. OncotypeDx recurrence score 2 (low risk). 2. Anxiety/depression 3. Morbid obesity - Summary of Therapies Summary of Therapies: 1. 12/06/2020 right mastectomy, sentinel lymph node biopsy 2. 02/14/2021 Start Anastrozole 1mg daily for planned 5 year course ROS Details: All systems reviewed & no additional complaints except as documented Subjective/ROS - Narrative: No change in review of systems from consult 01/18/2021 CONSTITUTIONAL: Negative for fatigue, negative for fever or night sweats. HEAD AND NECK: Negative for changes in hearing and vision. Negative for mouth ulcers, nasal congestion and nasal drainage. BREASTS: S/p right mastectomy healing well, no right upper extremity lymphedema; No masses left breast PULMONARY: Negative for chest pain, cough and dyspnea. CARDIOVASCULAR: Negative for claudication and irregular heartbeat/palpitations. GASTROINTESTINAL: Negative for abdominal pain, constipation, decreased appetite,diarrhea and vomiting. GENITOURINARY: Negative for dysuria and hematuria. ENDOCRINE: Negative for cold intolerance and heat intolerance. CENTRAL NERVOUS SYSTEM: Negative for gait disturbance and headache. PSYCHIATRIC: Positive for anxiety and depression--no current symptoms. DERMATOLOGICAL: Negative for pruritus and rash. Negative for suspicious skin lesions. MUSCULOSKELETAL: Negative for back pain and bone/joint symptoms. HEMATOLOGICAL: Negative for bleeding and easy bruising. Negative for history of transfusion or thromboembolic disease ALLERGY: Negative for environmental allergies and food allergies. PMFSH - History Attestation statement: The following information was validated with the patient. Source: Old Records Reviewed - Medical History Medical History: Medical History (Last Reviewed 02/14/21 @ 12:46 by Griselda Faye MD) Anxiety Breast cancer Right Depression Heart murmur - Surgical History Surgical History: Surgical History (Last Reviewed 02/14/21 @ 12:46 by Girselda Faye MD) History of section x 2 History of laparoscopy infection rt fallopian tube - Family History Family History: Family History (Last Reviewed 02/14/21 @ 12:46 by Griselda Faye MD) Mother Breast cancer Hypertension Stroke Kidney failure Father Hypertension Depression Brother Cerebellar ataxia - Social History Smoking Status: Current every day smoker Substance Use Type: None Home Medications & Allergies Allergies No Known Allergies Allergy (Verified 02/14/21 08:54) Home Medications Dosoquin 1 tab PO DAILY 12/04/20 [History Confirmed 02/14/21] duloxetine 30 mg PO DAILY 12/04/20 [History Confirmed 02/14/21] tramadol [Ultram] 50 mg PO Q6H PRN 7 Days #45 tab 12/07/20 [Rx Confirmed 02/14/21] ibuprofen 800 mg PO TID PRN #20 tab 02/03/21 [Rx Confirmed 02/14/21] anastrozole 1 mg PO DAILY #30 tab 02/14/21 [Rx] Objective - Height/Weight Height/Weight: Height 5 ft 1 in Weight 126.552 kg - Vital Signs Vital Signs: 02/14/21 08:54 Pulse Rate [Left Brachial] 82 Respiratory Rate 20 Blood Pressure [Left Arm] 143/82 H 02 Sat by Pulse Oximetry 94 L - Emotional Needs Assessment Emotional Needs Assessment: Emotional Needs Identified? No Physical Exam Narrative: CONSTITUTIONAL: The patient is in no acute distress. Physical exam deferred--see consult 01/18/2021 HEAD / FACE: Normocephalic. EYES: Pupils are equal and reactive to light. Conjunctivae and lids are benign in appearance. Ocular movement intact. EARS: Hearing grossly intact. NOSE / MOUTH / THROAT: Nose, mouth, tongue and oropharynx are benign in appearance. No signs of inflammation. NECK / THYROID: Neck is supple. Thyroid is symmetrical, without thyromegaly, masses or palpable nodules. BREAST EXAM: Left breast--no masses, no skin changes, no nipple discharge, no axillary fullness; S/P Right mastectomy/sentinel lymph node biopsy, healing well. LYMPHATIC: No palpable cervical, supraclavicular, axillary, or inguinal adenopathy. RESPIRATORY: Normal to inspection. Lungs clear to auscultation and percussion. No wheezing, rales, rhonchi or rubs. Normal effort. CARDIOVASCULAR: Regular rate and rhythm. No murmurs, gallops, or rubs. VASCULAR: Carotid, radial, femoral and pedal pulses present bilaterally. No bruits. ABDOMEN: Bowel sounds normoactive. Soft, nontender and non-distended. No hepatosplenomegaly. No masses. GENITOURINARY: No CVA tenderness. No suprapubic fullness or tenderness. No groinadenopathy. No evidence of hernias. INTEGUMENTARY: The skin is unremarkable. No rashes. No suspicious lesions BACK / SPINE: The back is nontender. MUSCULOSKELETAL: Normal musculature, no joint deformities or abnormalities, normal range of motion for all four extremities. EXTREMITIES: No edema, cyanosis or clubbing. No Florencia sign. NEUROLOGICAL: Alert and oriented. Cranial nerves intact. No gross motor or sensory deficits. PSYCHIATRIC: No current anxiety or evidence of depression. - ECOG Performance Status ECOG Score: 1 Results - Labs Labs: No labs for review - Impressions Baseline DEXA scan 01/25/2021 AP Spine T-score -0.4, normal Left femoral neck -1.7, osteopenia Right femoral neck -0.4, normal Assessment and Plan - TNM Staging Staging: Stage I (pT1c pN0) on right mastectomy 12/06/2020. Oncotype Dx recurrence score 2. (1) Carcinoma of right breast, estrogen and progesterone receptor positive This is a 55 year old lady recently found to have abnormal right mammogram, Stage I (pT1c pN0) on right mastectomy 12/06/2020. She is not interested in reconstructive surgery at this time. She denies any significant post op pain and is healing well. We discussed sending tumor specimen for Oncotype Dx to determine recurrence risk and whether she has benefit from adjuvant chemotherapy. We will send for baseline DEXA prior to planned hormonal therapy. No indication for radiation therapy with 1.1cm tumor, negative margins s/p mastectomy. 02/14/2021: Oncotype Dx results with low recurrence score 2 She expressed understanding of staging, risk assessment, and discussion of therapy options. Baseline DEXA prior to planned hormonal therapy--osteopenia left femoral neck, otherwise normal bone density. We discussed Tamoxifen vs. Anastrozole 1mg dailyfor goal 5 year course--she consents to anastrozole and we will contact her by phone in one month to assess her tolerance after a one month. Next followup with me in 3 months for survivorship visit. Moderate complexity visit for discussion of results and adjuvant hormonal therapy. (2) Osteopenia Qualifiers: Osteopenia location: hip Laterality: left Qualified Code(s): M85.852 - Other specified disorders of bone density and structure, left thigh Baseline DEXA ordered prior to discussion of possible aromatase inhibitor therapy--reviewed results today showing mild osteopenia left femoral neck. She agrees to add Calcium/Vit D OTC bid and will reassess DEXA every 2 years while on anastrozole therapy. (3) Encounter for monitoring aromatase inhibitor therapy Consented to adjuvant Anastrozole 1mg daily x 5 year course. - Chemo Plan Chemo Plan (Dose, Rate, Freq): Anastrozole 1mg po daily for 5 year course. Goal of Treatment: Curative - Time with Patient Time Spent with Patient (Follow Up Visit): 35 minutes Coordination of Care & Counseling Time: Greater than 50% of time spent with patient was for coordination of care (as documented) and [id number] counseling of patient and/or family. Dictated By: Griselda Faye MD DD/ 0900 Signed By: <Electronically signed by MD Griselda Faye> 02/14/21 [address] [facility] Work Phone: [phone]) 680-631403-05-2021 Consult note Author Griselda Faye [facility] January 19, 2021 9:02pm Note Date/Time January 18, 2021 4:32 pm [facility] [place] [address] Hem/Onc Consult Note - OP Signed Patient: Kimberley Macdonald MR#: [id number] : 1965 Acct:[id number] Age/Sex: 55 / F Type: REG RCR Copies to: MD Praneeth Camejo DO~ HPI Date/Time of Service: Date of Service: 01/18/2021 Time of Service: 16:31 Referring Provider/PCP: Referring Provider: Praneeth Soto DO PCP: Fermin Noriega MD - History of Present Illness Reason for Consultation: Referred for discussion of breast cancer adjuvant therapy, s/p 12/06/2020 right mastectomy with sentinel lymph node biopsy. Chief Complaint: Patient is here today for a referral from Dr Soto for breast cancer HPI: Dear Dr. Soto, I had the great pleasure of seeing your patient in consultation. Thank you verymuch for your referral. As you know, this is a 55 year old female who was informed of abnormal screening mammogram. No palpable lumps, tenderness, or skin changes. She was offered lumpectomy vs. mastectomy and chose right mastectomy with sentinel lymph node biopsy 12/06/2020: Invasive ductal carcinoma, [place] grade 1, 1.1cm with negative margins for invasive cancer and DCIS, ER+ 91-100%, ND+ 90-100%, Her2 1+ IHC (not overexpressed). 0/[address] for cancer. pT1c pN0 (sn). Healing well, minimal pain meds. Medical history: Morbid obesity, Anxiety/Depression, (), menopausal, no h/o hormone replacement therapy. Mother diagnosed with breast cancer at age 80. We discussed recurrence risk assessment utilizing Oncotype Dx from tumor tissue to determine if chemotherapy benefit. She agrees to sending tissue and baselineDEXA scan for aromatase inhibitor therapy. Followup in 2 weeks to review results. No indication for radiation therapy evaluation after prior mastectomy. [facility] - History Attestation statement: The following information was validated with the patient. Source: Old Records Reviewed - Medical History Medical History: Medical History (Last Reviewed 01/19/21 @ 20:47 by Griselda Faye MD) Anxiety Breast cancer Right Depression Heart murmur - Surgical History Surgical History: Surgical History (Last Reviewed 01/19/21 @ 20:47 by Griselda Faye MD) History of section x 2 History of laparoscopy infection rt fallopian tube - Family History Family History: Family History (Last Reviewed 01/19/21 @ 20:47 by Griselda Faye MD) Mother Breast cancer Hypertension Stroke Kidney failure Father Hypertension Depression Brother Cerebellar ataxia - Social History Smoking Status: Never smoker Substance Use Type: None Home Medications & Allergies Allergies No Known Allergies Allergy (Verified 01/18/21 14:22) Home Medications Dosoquin 1 tab PO DAILY 12/04/20 [History Confirmed 01/18/21] duloxetine 30 mg PO DAILY 12/04/20 [History Confirmed 01/18/21] tramadol [Ultram] 50 mg PO Q6H PRN 7 Days #45 tab 12/07/20 [Rx Confirmed 01/18/21] Subjective Data - Diagnosis DIAGNOSIS: 1. Stage I ER+, ND+, Her2 negative Grade I invasive ductal carcinoma. 2. Anxiety/depression 3. Morbid obesity - Summary of Therapies Summary of Therapies: 12/06/2020 right mastectomy, sentinel lymph node biopsy Subjective/ROS - Narrative: CONSTITUTIONAL: Negative for fatigue, negative for fever or night sweats. HEAD AND NECK: Negative for changes in hearing and vision. Negative for mouth ulcers, nasal congestion and nasal drainage. BREASTS: S/p right mastectomy healing well, no right upper extremity lymphedema; No masses left breast PULMONARY: Negative for chest pain, cough and dyspnea. CARDIOVASCULAR: Negative for claudication and irregular heartbeat/palpitations. GASTROINTESTINAL: Negative for abdominal pain, constipation, decreased appetite,diarrhea and vomiting. GENITOURINARY: Negative for dysuria and hematuria. ENDOCRINE: Negative for cold intolerance and heat intolerance. CENTRAL NERVOUS SYSTEM: Negative for gait disturbance and headache. PSYCHIATRIC: Positive for anxiety and depression--no current symptoms. DERMATOLOGICAL: Negative for pruritus and rash. Negative for suspicious skin lesions. MUSCULOSKELETAL: Negative for back pain and bone/joint symptoms. HEMATOLOGICAL: Negative for bleeding and easy bruising. Negative for history of transfusion or thromboembolic disease ALLERGY: Negative for environmental allergies and food allergies. ROS Details: All systems reviewed & no additional complaints except as documented Objective - Height/Weight Height/Weight: Height 5 ft 1 in Weight 125.191 kg - Vital Signs Vital Signs: 01/18/21 14:07 Temperature 97.6 F Pulse Rate [Left Brachial] 89 Respiratory Rate 20 Blood Pressure [Left Arm] 149/86 H 02 Sat by Pulse Oximetry 98 - Emotional Needs Assessment Emotional Needs Assessment: Emotional Needs Identified? No Physical Exam Narrative: CONSTITUTIONAL: The patient is in no acute distress. HEAD / FACE: Normocephalic. EYES: Pupils are equal and reactive to light. Conjunctivae and lids are benign in appearance. Ocular movement intact. EARS: Hearing grossly intact. NOSE / MOUTH / THROAT: Nose, mouth, tongue and oropharynx are benign in appearance. No signs of inflammation. NECK / THYROID: Neck is supple. Thyroid is symmetrical, without thyromegaly, masses or palpable nodules. BREAST EXAM: Left breast--no masses, no skin changes, no nipple discharge, no axillary fullness; S/P Right mastectomy/sentinel lymph node biopsy, healing well. LYMPHATIC: No palpable cervical, supraclavicular, axillary, or inguinal adenopathy. RESPIRATORY: Normal to inspection. Lungs clear to auscultation and percussion. No wheezing, rales, rhonchi or rubs. Normal effort. CARDIOVASCULAR: Regular rate and rhythm. No murmurs, gallops, or rubs. VASCULAR: Carotid, radial, femoral and pedal pulses present bilaterally. No bruits. ABDOMEN: Bowel sounds normoactive. Soft, nontender and non-distended. No hepatosplenomegaly. No masses. GENITOURINARY: No CVA tenderness. No suprapubic fullness or tenderness. No groinadenopathy. No evidence of hernias. INTEGUMENTARY: The skin is unremarkable. No rashes. No suspicious lesions BACK / SPINE: The back is nontender. MUSCULOSKELETAL: Normal musculature, no joint deformities or abnormalities, normal range of motion for all four extremities. EXTREMITIES: No edema, cyanosis or clubbing. No Florencia sign. NEUROLOGICAL: Alert and oriented. Cranial nerves intact. No gross motor or sensory deficits. PSYCHIATRIC: No current anxiety or evidence of depression. - ECOG Performance Status ECOG Score: 1 Results - Labs Labs: No recent labs for review. - Impressions Original mammogram and ultrasound (prior to mastectomy) not available for review. Assessment and Plan - TNM Staging Staging: Stage I (pT1c pN0) on right mastectomy 12/06/2020. (1) Carcinoma of right breast, estrogen and progesterone receptor positive This is a 55 year old lady recently found to have abnormal right mammogram, Stage I (pT1c pN0) on right mastectomy 12/06/2020. She is not interested in reconstructive surgery at this time. She denies any significant post op pain and is healing well. We discussed sending tumor specimen for Oncotype Dx to determine recurrence risk and whether she has benefit from adjuvant chemotherapy. We will send for baseline DEXA prior to planned hormonal therapy. No indication for radiation therapy with 1.1cm tumor, negative margins s/p mastectomy. She will return in 2 weeks to f/u Oncotype Dx results. She expressed understanding of staging, risk assessment, and discussion of therapy options. I would like to thank you very much for the courtesy of this referral. I will keep you up-to-date with this patient's progress. Should you have any questionsregarding the management of this patient, please do not hesitate to contact me. Sincerely, Griselda Faye MD, FACP Medical Oncology (2) Screening for osteoporosis Baseline DEXA ordered prior to discussion of possible aromatase inhibitor therapy, based on results of Oncotype Dx testing. Mother was age 80 at breast cancer diagnosis and no other family members with breast/ovarian cancer. - Time with Patient Total Time Spent with Patient (Consult): 45 mins Coordination of Care & Counseling Time: Greater than 50% of time spent with patient was for coordination of care (as documented) and [id number] counseling of patient and/or family. Dictated By: Griselda Faye MD DD/ [id number] Signed By: <Electronically signed by MD Griselda Faye> 01/19/21 2102 [facility] Work Phone: Evaluation note* Diagnosis Onset Date Resolution Status Encounter for monitoring aromatase inhibitor therapy acute Lymph edema acute Osteopenia acute Carcinoma of right breast, e strogen and progesterone receptor positive chronic Screening for osteoporosis c hronic [facility] Work Phone: Evaluation noteNo assessment information available [facility] Work Phone: Evaluation note* Diagnosis Hematuria, unspecified type- Primary History of hematuria Personal history of other disorder of urinary system Morbid obesity (CMS/HCC) Morbid obesity Adult BMI 50.0-59.9 kg/sq m (CMS/HCC) documented in this encounter [facility] Diagnosis Onset Date Resolution Status Encounter for monitoring aromatase inhibitor therapy acute Lymph edema acute Osteopenia acute Carcinoma of right breast, e strogen and progesterone receptor positive chronic Screening for osteoporosis c hronic Encounter for monitoring aromatase inhibitor therapy acute Obesity acute Osteopenia acute Carcinoma of right breast, e strogen and progesterone receptor positive chronic [facility] Work Phone: Evaluation note* Diagnosis Onset Date Resolution Status Encounter for monitoring aromatase inhibitor therapy acute Lymph edema acute Osteopenia acute Carcinoma of right breast, e strogen and progesterone receptor positive chronic Screening for osteoporosis c hronic Encounter for monitoring aromatase inhibitor therapy acute Obesity acute Osteopenia acute Carcinoma of right breast, e strogen and progesterone receptor positive chronic Bronchitis noneactive Dysuria noneactive [facility] Work Phone: Evaluation note* Diagnosis Onset Date Resolution Status Encounter for monitoring aromatase inhibitor therapy acute Lymph edema acute Osteopenia acute Carcinoma of right breast, e strogen and progesterone receptor positive chronic Screening for osteoporosis c hronic Encounter for monitoring aromatase inhibitor therapy acute Obesity acute Osteopenia acute Carcinoma of right breast, e strogen and progesterone receptor positive chronic Bronchitis noneactive Dysuria noneactive Allergic rhinitis noneactive [facility] Work Phone: Hospital course Narrative No data available for this section [facility] Work Phone: Hospital Discharge instructionsAmbulatory Orders* RISE Order Time Frame: 1 Week, Location: Determined By Patient [facility] Work Phone: Hospital Discharge instructions No data available for this section [facility] No data available for this section [facility] Author Ayanna Arango [facility] June 19, 2023 3:31pm Note Date/Time June 19, 2023 3:0 9pm [facility] [place] [address] Hem/Onc Follow Up Note - OP Signed Patient: Kimberley Macdonald MR#: [id number] : 1965 Acct:[id number] Age/Sex: 57 / F Type: REG RCR Copies to: MD Praneeth Camejo,DO~ Subjective Date/Time of Service: Date of Service: 06/19/2023 Time of Service: 15:08 Chief Complaint: Follow up with scans HPI: 06/19/2023: Kimberley is here for interval 6 month follow up; now 8 months from last follow up. She had a DEXA scan in January 2023 that showed mixed normal findings with osteopenia. Her next mammogram is due in September 2024. She still follows with surgery- Dr. Soto - saw him last week. Denies headaches, fever/chills, night sweats, hot flashes, unintentional weight loss, changes on self breast exam, lymphadenopathy, abdominal pain, early satiety or new bony pain. Overall,tolerates letrozole with minimal to no side effects. She is compliant with calcium and vitamin D3. 10/23/2022: Kimberley is here for follow-up for her breast cancer on letrozole. She denies new complaints today and continues to do well overall. Her las mammogram was 10/11/22 and negative for malignancy. She will follow-up in [address] Faye. Next DEXA is due January 2023 and we will call with results. 04/25/22: Patient is here for 6-month follow-up. She has tolerated letrozole 2.5 mg daily very well without any problems. She denies joint pain or muscle pain. She denies hot flashes. She is not taking calcium or vitamin D. Her last bone density study showed osteopenia in January 2021. Her last left mammogram was negative on 10/02/2021. 10/25/2021:Kimberley presents for 6 month survivorship visit for her breast cancer. She is doing very well overall without complaints today. She denies any hot flashes, no arthralgias or myalgias on letrozole. Energy is good. She denies anyskin changes or new lumps. She had 2 breast exams done in the last month, so we will defer examination at today's visit. She will continue to be followed every 6 months, alternating with general surgery for exam and assessment of AI therapy. 05/31/2021: Kimberley is here for survivorship visit. She noted increased arthralgias of bilateral hips starting anastrozole therapy, therefore we held her anastrozole for 2 weeks, then gave her a trial of letrozole 2.5 mg daily for30 days which she tolerated well. No troubling hot flashes. We discussed that after survivorship visit today she will be followed every 6 months, alternating with general surgery for exam and assessment of AI therapy. No other concerns. 02/14/2021: Well healed from mastectomy--no post-mastectomy pain. We reviewed Oncotype Dx Recurrence Score which returned low at 2 (3% recurrence risk at 9 years with AI or Tamoxifen alone)--<1% benefit to chemotherapy. She had baseline DEXA with mild osteopenia Left femoral neck, otherwise normal. AdvisedOTC Caltrate (Calcium/Vit D twice daily). We discussed Tamoxifen vs. Aromatase Inhibitors--AI preferred due to lower risk of thrombosis, endometrial cancer. 20% incidence myalgias/arthralgias, osteoporosis risk. Goal 5 years of therapy. Phone followup in one month to assess therapy tolerance. Next f/u 3 months [facility] visit. PREVIOUS HISTORY (Consult 01/18/2021): This is a 55 year old female who was informed of abnormal screening mammogram. No palpable lumps, tenderness, or skin changes. She was offered lumpectomy vs. mastectomy and chose right mastectomy with sentinel lymph node biopsy 12/06/2020: Invasive ductal carcinoma, José Luis grade 1, 1.1cm with negative margins for invasive cancer and DCIS, ER+ 91-100%, ND+ 90-100%, Her2 1+ IHC (not overexpressed). 0/[address]+ for cancer. pT1c pN0 (sn). Healing well, minimal pain meds. Medical history: Morbid obesity, Anxiety/Depression, (), menopausal, no h/o hormone replacement therapy. Mother diagnosed with breast cancer at age 80. We discussed recurrence risk assessment utilizing Oncotype Dx from tumor tissue to determine if chemotherapy benefit. She agrees to sending tissue and baselineDEXA scan for aromatase inhibitor therapy. Followup in 2 weeks to review results. No indication for radiation therapy evaluation after prior mastectomy. DIAGNOSIS: 1. Stage I ER+, ND+, Her2 negative Grade I invasive ductal carcinoma. OncotypeDx recurrence score 2 (low risk). 2. Anxiety/depression 3. Morbid obesity - Summary of Therapies Summary of Therapies: 1. 12/06/2020 right mastectomy, sentinel lymph node biopsy. OncotypeDX showed recurrence score of 2. 2. 02/14/2021 Started Anastrozole 1mg daily. 3. 05/31/2021, she was having intolerable toxicities from anastrozole and changed to letrozole 2.5 mg daily p.o. daily, which is tolerated well. ROS Details: All systems reviewed & no additional complaints except as documented Subjective/ROS - Narrative: CONSTITUTIONAL: Negative for fatigue, negative for fever or night sweats. HEAD AND NECK: Negative for changes in hearing and vision. Negative for mouth ulcers, nasal congestion and nasal drainage. BREASTS: S/p right mastectomy healing well, no right upper extremity lymphedema; No masses left breast PULMONARY: Negative for chest pain, cough and dyspnea. CARDIOVASCULAR: Negative for claudication and irregular heartbeat/palpitations. GASTROINTESTINAL: Negative for abdominal pain, constipation, decreased appetite,diarrhea, nausea or vomiting. GENITOURINARY: Negative for dysuria and hematuria. ENDOCRINE: Negative for cold intolerance and heat intolerance. CENTRAL NERVOUS SYSTEM: Negative for gait disturbance and headache. PSYCHIATRIC: Positive for anxiety and depression--no current symptoms. DERMATOLOGICAL: Negative for pruritus and rash. Negative for suspicious skin lesions. MUSCULOSKELETAL: Negative for back pain and bone/joint symptoms. Prior hip arthralgias have resolved since changing anastrozole to letrozole. HEMATOLOGICAL: Negative for bleeding and easy bruising. Negative for history of transfusion or thromboembolic disease ALLERGY: Negative for environmental allergies and food allergies. [facility] - Medical History Medical History: Medical History (Last Reviewed 06/01/21 @ 12:39 by Griselda Faye MD) Anxiety Breast cancer Right Depression Heart murmur - Surgical History Surgical History: Surgical History (Last Reviewed 06/01/21 @ 12:39 by Griselda Faye MD) History of section x 2 History of laparoscopy infection rt fallopian tube - Family History Family History: Family History (Last Reviewed 06/01/21 @ 12:39 by Griselda Faye MD) Mother Breast cancer Hypertension Stroke Kidney failure Father Hypertension Depression Brother Cerebellar ataxia - Social History Smoking Status: Never smoker Substance Use Type: None Home Medications & Allergies Allergies No Known Allergies Allergy (Verified 06/19/23 14:48) Home Medications duloxetine 30 mg capsule,delayed release 30 mg PO DAILY depression 12/04/20 [History Confirmed 06/19/23] ibuprofen 800 mg tablet 800 mg PO TID PRN Pain #20 tabs 02/03/21 [Rx Confirmed 06/19/23] letrozole 2.5 mg tablet 2.5 mg PO DAILY 90 days #90 tabs 08/12/22 [Rx Confirmed 06/19/23] Objective - Resuscitation Status Resuscitation Status: Full Code - Height/Weight Height/Weight: Height 5 ft 1 in Weight 130.3 kg - Vital Signs Vital Signs: 06/19/23 14:51 Temperature 98.2 F Pulse Rate [Left Brachial] 72 Respiratory Rate 16 Blood Pressure [Left Arm] 170/96 H 02 Sat by Pulse Oximetry 98 Oxygen Delivery Method Room Air Physical Exam Narrative: CONSTITUTIONAL: The patient is in no acute distress. HEAD / FACE: Normocephalic. EYES: Pupils are equal and reactive to light. Conjunctivae and lids are benign in appearance. Ocular movement intact. EARS: Hearing grossly intact. NOSE / MOUTH / THROAT: Nose, mouth, tongue and oropharynx are benign in appearance. No signs of inflammation. NECK / THYROID: Neck is supple. Thyroid is symmetrical, without thyromegaly, masses or palpable nodules. BREAST EXAM: s/p right mastectomy. No new nodules noted on exam. L breast without nodules or skin changes. No nipple discharge. No axillary adenopathy to R or L LYMPHATIC: No palpable cervical, supraclavicular, axillary adenopathy. RESPIRATORY: Normal to inspection. Lungs clear. Normal effort. CARDIOVASCULAR: Regular rate and rhythm. No murmurs, gallops, or rubs. ABDOMEN: Soft, nontender and non-distended. Normoactive bowel sounds INTEGUMENTARY: The skin is unremarkable. No rashes. No suspicious lesions MUSCULOSKELETAL: Normal musculature, no joint deformities or abnormalities, normal range of motion for all four extremities. NEUROLOGICAL: Alert and oriented. Cranial nerves intact. No gross motor or sensory deficits. PSYCHIATRIC: No current anxiety or evidence of depression. - ECOG Performance Status ECOG Score: 0 Assessment and Plan - TNM Staging Staging: Stage I (pT1c pN0) on right mastectomy 12/06/2020. Oncotype Dx recurrence score 2. (1) Carcinoma of right breast, estrogen and progesterone receptor positive This is a 56 year old lady with Stage I (pT1c pN0) ER+ND+Her2- right breast cancer s/p right mastectomy 12/06/2020. Oncotype DX showed very low recurrence score. She started Arimidex initially, changed to letrozole in May 2021 due tojoint pain. She has tolerated letrozole very well without any complaints. She understands she will continue letrozole for 5 years. She will follow-up with Dr. Faye in 6 months. Her next left breast mammogram is due in September this year, to be ordered by Dr. Soto. On foot exam and noticed lymphedema of her right upper extremity. I will refer her to lymphedema clinic. I have also advised her to take calcium and vitamin D given the osteopenia and taking aromatase inhibitor. Patient is worried about familial breast cancer because her mother also has breast cancer. I mentioned genetic counseling might be beneficial but she wants to think about it. She is also due for repeat DEXA scan in January 2023. 02/14/2021: Oncotype Dx results with low recurrence score 2 She expressed understanding of staging, risk assessment, and discussion of therapy options. Baseline DEXA prior to planned hormonal therapy--osteopenia left femoral neck, otherwise normal bone density. We discussed Tamoxifen vs. Anastrozole 1mg dailyfor goal 5 year course--she consents to anastrozole and we will contact her by phone in one month to assess her tolerance after a one month. The patient had a phone follow-up 03/07/2021 after noting that she had bilateral hip pain that she attributed to anastrozole. We changed her therapy to letrozole 2.5 mg daily and she notes her hip arthralgias have resolved. She agrees to continue letrozole therapy for 5 years. Next followup with me in 4 months for exam since she regularly follows with Dr. Soto her surgeon. Moderate complexity visit for discussion of tolerance of adjuvant hormonal therapy and survivorship template review. 10/25/2021: she is tolerating letrozole very well without complaints. We plan to continue this therapy for 5 years. Her next survivorship follow-up will be in [address] Faye. We will continue to assess for AI toxicity and complete regular breast examinations, alternating these with Dr. Soto. SURVIVORSHIP: - Discussed side effects that are present now, that may go away; include: (fatigue/feeling tired, numbness at surgical scar site, nail changes, hot flashes, myalgias, vaginal dryness) - Discussed may have a higher risk of: 1.) Decreased bone density, 2.) Lymphedema Call the clinic with any of the followin. New swelling or reddening of an arm 2. new lumps, tender areas in the breast 3. new pain that doesn't go away 4. rash in the surgical/radiation area 5. side effects and/or symptoms that are not well controlled Follow up/Imagin.) Surgical Provider: Dr. Soto. Left mammogram in September,. 2.) Medical Oncology: Dr. Faye every 6 months x 2 years; then annually) 3.) PCP- at least annually; will order any non breast cancer related screenings/tests. Healthy Lifestyle Advice: - Limit alcohol intake (<1 drink/day female) - Moderate exercise (walking 150 minutes/week or 30 mins 5 x week) - Abstain from tobacco products - Use sunscreen with at least SPF 15 - Bone health: Take daily Calcium (1,000mg/Vit D3 supplementation (1000mg/2000iu- winter months) daily. [facility] (12 month patient goals): 1.) Making more time for myself 10/23/2022: She continues to do well overall and is without new complaints. She continues on letrozole 2.5mg PO daily. Mammogram 10/11/22 negative for malignancy. She will be due for next DEXA in January and will follow-up with Dr. Faye in 6 months, sooner as needed. She is in agreement with this plan and has no questions. 06/19/2023: Kimberley is here for interval 6 month follow up; now 8 months from last follow up. She had a DEXA scan in January 2023 that showed mixed normal findings with osteopenia. Her next mammogram is due in September 2024. She still follows with surgery- Dr. Soto - saw him last week. Denies headaches, fever/chills, night sweats, hot flashes, unintentional weight loss, changes on self breast exam, lymphadenopathy, abdominal pain, early satiety or new bony pain. Overall,tolerates letrozole with minimal to no side effects. She is compliant with calcium and vitamin D3. -Based on physical exam, ROS there are no signs or symptoms to suggest cancer recurrence. -Next diagnostic mammogram already ordered by Dr. Soto for September 2023. -She will continue follow-up with surgery?next appointment with Dr. Soto in November 2023. -Follow-up 6 months with exam, review of mammogram. (2) Osteopenia Qualifiers: Osteopenia location: hip Laterality: left Qualified Code(s): M85.852 - Other specified disorders of bone density and structure, left thigh Baseline DEXA in January 2021 showed osteopenia in her left femoral neck. We toldher again to start taking Calcium/Vit D OTC bid. She will repeat DEXA every 2 years while on AI therapy. Repeat DEXA scan done in January 2023 (2 years in to AI therapy) - overall stable.Mixed areas of normal bone mass and osteopenia. Continue calcium and vitamin D3. Next DEXA scan due January 2025 (3) Encounter for monitoring aromatase inhibitor therapy Started Anastrozole 1mg daily initially, changed to Letrozole due to hip pain. She continues to have much better tolerance to Letrozole and will remain on therapy for a total of 5 years. Continue through January 2026 (4) Lymph edema - Chemo Plan Chemo Plan (Dose, Rate, Freq): Letrozole 2.5 mg po daily for 5 year course. Start of therapy was 02/14/2021. Goal of Treatment: Curative - Time with Patient Time Spent with Patient (Follow Up Visit): 25 minutes Coordination of Care & Counseling Time: Greater than 50% of time spent with patient was for coordination of care (as documented) and [id number] counseling of patient and/or family. 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 Chief Complaint and Reason for Visit Chief Complaint Right Breast Cancer Chief Complaint breast cancer lymphedema- R arm Reason for Visit Encounter for monito ring aromatase inhibitor therapy Lymph edema Osteopenia Carcinoma of right breast, estrogen and progesterone receptor positive Screening for osteoporosis Chief Complaint hx of breast cancer breast cancer Reason for Visit Encounter for monito ring aromatase inhibitor therapy Lymph edema Osteopenia Carcinoma of right breast, estrogen and progesterone receptor positive Screening for osteoporosis Chief Complaint breast cancer Reason for Visit Encounter for monito ring aromatase inhibitor therapy Lymph edema Osteopenia Carcinoma of right breast, estrogen and progesterone receptor positive Screening for osteoporosis Chief Complaint Screening Chief Complaint Screening complete, a1c, tsh vitd Chief Complaint Screening complete, a1c, tsh vitd breast cancer Reason for Visit Encounter for monito ring aromatase inhibitor therapy Lymph edema Osteopenia Carcinoma of right breast, estrogen and progesterone receptor positive Screening for osteoporosis Chief Complaint breast cancer cough, congestion, right ear pain Reason for Visit Encounter for monito ring aromatase inhibitor therapy Lymph edema Osteopenia Carcinoma of right breast, estrogen and progesterone receptor positive Screening for osteoporosis Encounter for monitoring aromatase inhibitor therapy Obesity Osteopenia Carcinoma of right breast, estrogen and progesterone receptor positive Chief Complaint breast cancer cough, congestion, right ear pain cough, ears plugged and possible uti Reason for Visit Encounter for monito ring aromatase inhibitor therapy Lymph edema Osteopenia Carcinoma of right breast, estrogen and progesterone receptor positive Screening for osteoporosis Encounter for monitoring aromatase inhibitor therapy Obesity Osteopenia Carcinoma of right breast, estrogen and progesterone receptor positive Bronchitis Dysuria Chief Complaint breast cancer cough, congestion, right ear pain cough, ears plugged and possible uti Dysuria Reason for Visit Encounter for monito ring aromatase inhibitor therapy Lymph edema Osteopenia Carcinoma of right breast, estrogen and progesterone receptor positive Screening for osteoporosis Encounter for monitoring aromatase inhibitor therapy Obesity Osteopenia Carcinoma of right breast, estrogen and progesterone receptor positive Bronchitis Dysuria Allergic rhinitis Assessments No Assessments Information Available Family History No Family History Records Found Relationship Condition Age at Onset Recorded Date/T to Not Specified Malignant neoplasm of breast Unknown Hypertension Unknown Cerebrovascular accident (CVA) Unknown Renal failure Unknown father Hypertension Unknown Depression Unknown brother Cerebellar ataxia Unknown Summary Purpose Additional Source Comments INFORMATION SOURCE (unrecogn ized section and content) DATE CREATED AUTHOR 07/12/2021 [facility] DATE CREATED AUTHOR AUTHOR'S ORGANIZ ATION 01/23/2022 [facility] DATE CREATED AUTHOR AUTHOR'S ORGANIZ ATION 04/01/2024 [facility] DATE CREATED AUTHOR AUTHOR'S ORGANIZ ATION 06/17/2024 [facility] EPIC DATE CREATED AUTHOR AUTHOR'S ORGANIZ ATION 07/17/2024 [facility] Care Teams (unrecognized sec tion and content) Team Status: Active Member Role Status Dates Fermin Noriega MD Primary Care Provider Active Team Status: Active Member Role Status Dates Fermin Noriega MD Primary Care Provider Active Start: January 08, 2024 Griselda Faye MD Attending Provider Active Start: January 08, 2024 Praneeth Soto DO Referring Provider Active Start : January 08, 2024 Team Status: Inactive Member Role Status Dates Fermin Noriega MD Primary Care Provider Active Start: January 08, 2024 End: January 08, 2024 Griselda Faye MD Attending Provider Active Start: January 08, 2024 End: January 08, 2024 Team Status: Inactive Member Role Status Dates Fermin Noriega MD Primary Care Provider Active Start: January 31, 2024 End: January 31, 2024 AMA Hernandez Attending Provider Active S tart: January 31, 2024 End: January 31, 2024 Team Status: Inactive Member Role Status Dates Fermin Noriega MD Primary Care Provider Active Praneeth Soto DO Attending Provider Active Team Status: Active Member Role Status Dates Fermin Noriega MD Primary Care Provider Active Griselda Faye MD Attending Provider Active Praneeth Soto DO Referring Provider Active Team Status: Inactive Member Role Status Dates Fermin Noriega MD Primary Care Provider Active Pastor Allison MD Attending Provider Active Team Status: Inactive Member Role Status Dates Fermin Noriega MD Primary Care Provider Active [employer] Attending Provider Active Freight Agent Relationship Specialty Start Date End Date Fermin Noriega MD [address] [place] [address] (Fax) PCP - General Family Medicine 05/22/23 Freight Agent Relationship Specialty Start Date End Date Fermin Noriega MD [address] [facility] [place] [address] (Fax) PCP - General Family Medicine 05/22/23 Team Status: Inactive Member Role Status Dates Fermin Noriega MD Primary Care Provider Active Start: October 14, 2023 End: October 14, 2023 Praneeth Soto DO Attending Provider Active Start : October 14, 2023 End: October 14, 2023 Team Status: Inactive Member Role Status Dates Fermin Noriega MD Primary Care Provider Active Start: October 18, 2023 End: October 18, 2023 [employer] Attending Provider Active Sta rt: October 18, 2023 End: October 18, 2023 Team Status: Inactive Member Role Status Dates Fermin Noriega MD Primary Care Provider Active Start: March 27, 2024 End: March 27, 2024 Cara Long APRN Attending Provider Active Start: March 27, 2024 End: March 27, 2024 Goals (unrecognized section and content) Goals may be documented in a n alternate sectionGoals may be documented in an alternate section No data available for this sectionGoals may be documented in an alternate sectionGoals may be documented in an alternate sectionGoals may be documented in an alternate sectionGoals may be documented in an alternate section No data available for this sectionGoals may be documented in an alternate sectionGoals may be documented in an alternate sectionGoals may be documented in an alternate section No data available for this section No data available for this section Reason for Visit (unrecogniz ed section and content) Reason Comments UTI FOR RECORDS PERTAINING TO PATIENTS WHO ARE OR HAVE BEEN ENROLLED IN A CHEMICAL DEPENDENCY/SUBSTANCEABUSE PROGRAM, SOME INFORMATION MAY BE OMITTED. This clinical summary was aggregated from multiple sources. Caution should be exercised in using it in the provision of clinical care. This summary normalizes information from multiple sources, and as a consequence, information in this document may materially change the coding, format and clinical context of patient data. In addition, data may be omitted in some cases. CLINICAL DECISIONS SHOULD BE BASED ON THE PRIMARY CLINICAL RECORDS. [employer] provides no warranty or guarantee of the accuracy or completeness of information in this document.
== END 2024-07-21 11:37 | disposition home or self-care (01) ==
LOC: US 11:36
PROVIDERS: PCP Family Medicine; Visit Provider Physician Assistant
DX: R39.9 Unspecified symptoms and signs involving the genitourinary system (principal)
CPT/HCPCS: 76775